=== PATIENT | male | born 1970 | race Caucasian/White ===

== ENCOUNTER 2024-06-18 17:59 | Inpatient (IN) | payer OTHER, SELFPAY ==
[2024-06-18 12:40] VITALS: BP 137/59
--- NOTE | 2024-06-18 12:47 | ED.PDOC.TRB ---
ED Provider Triage
-
Patient seen by provider in Triage?: Seen in Triage
Attestation: A medical screening examination has been initiated by a qualified medical provider. Based on the assessment performed at this time, it has been determined that an emergent medical condition may exist and the patient has been informed
that further medical evaluation and possible additional diagnostic testing may be needed.
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 He was seen at his
oncologist office today where the toe was evaluated, he had labs showing mild leukocytosis and was given a dose of IV antibiotics. Oncologist is in [place] greater than 2 hours from this hospital. He was apparently given a dose of IV
antibiotics there. Denies fevers or chills
GENERAL: Alert , in no apparent distress
EYE: No visual abnormalities.
NECK: Trachea midline
ENT: No visible abnormalities.
LUNGS: No acute respiratory distress
NEUROLOGICAL: Alert and oriented
SKIN: Skin intact. No visible changes. Diffuse redness and swelling of the left third toe with lymphangitis extending to the mid left lower leg
MUSCULOSKELETAL: Moving extremities normally
PSYCH: Normal and appropriate interaction.
Assessment: Will obtain labs including inflammatory markers and a toe x-ray to evaluate for osteomyelitis. High suspicion that he will require admission for IV antibiotics will recommend IV placement in triage, clinically stable
This is a medical evaluation conducted in person to initiate diagnostic evaluation and provide initial therapeutics. Please see further documentation by the treating clinician.
[2024-06-18 13:02] LABS: % Basophils 0.6 % (0-2); % Eosinophils 2.9 % (0-6); % Immature Granulocytes 0.4 % (0-0.5); % Lymphocytes 14.1 % (20.5-51.1); % Monocytes 9.5 % (1.7-9.3); % Neutrophils 72.5 % (42.2-75.2); Absolute Basophils 0.1 10^3/uL (0-0.2); Absolute Eosinophils 0.4 10^3/uL (0-0.7); Absolute Immature Granulocytes 0.1 10^3/uL (0-0.05); Absolute Lymphocytes 1.7 10^3/uL (1.2-3.4); Absolute Monocytes 1.2 10^3/uL (0.1-0.6); Hematocrit 34.2 % (39.0-52.0); Hemoglobin 11.9 g/dL (13.0-18.0); Mean Corp Hgb Conc. 34.8 g/dL (33.0-37.0); Mean Corpuscular Hgb 29.3 pg (27.0-31.0); Mean Corpuscular Volume 84.2 fL (80.0-94.0); Mean Platelet Volume 8.7 fL (7.4-10.4); Nucleated Red Blood Cells % 0 % (-); Platelet Count 267 10^3/uL (130-400); Red Blood Cell Count 4.06 10^6/uL (4.70-6.10); Red Cell Dist. Width 14.2 % (11.5-14.5); White Blood Cell Count 12.4 10^3/uL (4.8-10.8)
[2024-06-18 13:09] LABS: Erythrocyte Sed Rate 43 mm/hour (0-20)
[2024-06-18 13:24] LABS: ALT (SGPT) 29 U/L (0-50); AST (SGOT) 32 U/L (17-59); Albumin 4.7 g/dl (3.5-5.0); Alkaline Phosphatase 77 U/L (38-126); Blood Urea Nitrogen 38 mg/dl (9-20); Calcium 10.3 mg/dl (8.4-10.2); Carbon Dioxide 21 mmol/L (22-30); Chloride 106 mmol/L (98-107); Glucose 124 mg/dl (70-99); Potassium 4.9 mmol/L (3.5-5.1); Sodium 143 mmol/L (135-145); Total Bilirubin 0.5 mg/dl (0.2-1.3); Total Protein 7.3 g/dl (6.3-8.2); eGFR 47.02
--- NOTE | 2024-06-18 15:12 | ED.GENMED ---
History of Present Illness
General
Chief Complaint: Skin Problem
Source: patient
Exam Limitations: none
Time Seen by Provider: 06/18/24 15:12
Nursing documentation reviewed up to this point in time: agreed with
History of Present Illness
History of Present Illness:
This is a 54 y/o male with
Past History
Past History
ED Past Medical History: HTN and NIDDM
Social History
Tobacco: Non-smoker
Personal:
Living: with family
Employment: Employed
Course
Orders/Labs/Results
Orders:
Orders
06/18/24 12:45
CR Toe(s) Min 2 Vw Left Urgent
Comment:
Reason For Exam: poss osteo
Indicate Which Toe:: Third
06/18/24 12:49
CRP [C-Reactive Protein] Urgent
Complete Blood Count/With Diff Urgent
Comprehensive Metabolic Panel Urgent
ESR [Erythrocyte Sed Rate] Urgent
Abnormal Lab Results
06/18/24
12:49
WBC 12.4 H 10^3/uL
(4.8-10.8)
RBC 4.06 L 10^6/uL
(4.70-6.10)
Hgb 11.9 L g/dL
(13.0-18.0)
Hct 34.2 L %
(39.0-52.0)
Abs Immat Gran (auto) 0.1 H 10^3/uL
(0-0.05)
Absolute Neuts (auto) 9.0 H 10^3/uL
(1.4-6.5)
Absolute Monos (auto) 1.2 H 10^3/uL
(0.1-0.6)
Lymphocytes % 14.1 L %
(20.5-51.1)
Monocytes % 9.5 H %
(1.7-9.3)
ESR 43 H mm/hour
(0-20)
Carbon Dioxide 21 L mmol/L
(22-30)
BUN 38 H mg/dl
(9-20)
Creatinine 1.7 H mg/dL
(0.7-1.3)
Glucose 124 H mg/dl
(70-99)
Calcium 10.3 H mg/dl
(8.4-10.2)
C-Reactive Protein 34.00 H mg/L
(0.0-10.00)
06/18/24 12:49
06/18/24 12:49
Vital Signs
Initial and Last Documented VS:
Initial Vital Signs
Temp Pulse Resp BP Pulse Ox
98.6 F 87 18 137/59 99
06/18/24 12:40 06/18/24 12:40 06/18/24 12:40 06/18/24 12:40 06/18/24 12:40
Last Documented Vital Signs
Temp Pulse Resp BP Pulse Ox
98.6 F 87 18 137/59 99
06/18/24 12:40 06/18/24 12:40 06/18/24 12:40 06/18/24 12:40 06/18/24 12:40
ED Attending Note
-
Portions of this chart may have been created with voice recognition software.� Occasional wrong word or��sound alike� substitutions may have occurred due to the inherent limitations of voice recognition software.
Discharge Plan
Departure
Prescriptions:
No Action
atorvastatin 40 MG tablet
40 mg PO DAILY
metformin 500 MG tablet
500 mg PO BID
aspirin 81 MG tablet,delayed release (DR/EC)
81 mg PO DAILY
hydrochlorothiazide 12.5 MG capsule
12.5 mg PO DAILY
quinapril [Accupril] 20 MG tablet
20 mg PO DAILY
diltiazem HCl [Cardizem LA] 240 MG tablet extended release 24 hr
240 mg PO DAILY
metaxalone [Skelaxin] 800 MG tablet
800 mg PO TIDPRN Qty: 30 0RF
Referrals:
Boy Kowalski DO [Family Provider] -
Interventions
Interventions:
*Risk Screen - Suicide Last Done: 06/18/24 12:44
*General Assessment Last Done: 06/18/24 12:44
*Neglect/Abuse Screening Last Done: 06/18/24 12:44
ED- Fall Risk Assessment Last Done: 06/18/24 14:19
*ED COVID-19 Vaccine History Last Done: 06/18/24 14:19
ED-Skin Assessment Last Done: 06/18/24 14:18
Discharge Date and Time
Print Language: SYRIAC
--- NOTE | 2024-06-18 15:24 | ED.GENMED ---
History of Present Illness
General
Chief Complaint: Skin Problem
Source: patient and physician
Time Seen by Provider: 06/18/24 15:12
History of Present Illness
History of Present Illness:
54-year-old male with past medical history of CML, glx-mkmnivu-vuaornilx diabetes and hypertension presenting to the emergency department for evaluation after he noticed left middle toe erythema and pain that he noticed this morning while showering
and getting ready for his oncology appointment. While at the oncology office patient noted to the oncologist his symptoms who evaluated the patient and decided to take him to a clinic that was next to the oncology office who evaluated the patient,
gave him a dose of Zosyn and recommended he come to the ER ultimately to be admitted for IV antibiotics given his comorbidities. Patient states he cannot think of anything that caused the redness other than last week he had been on the [facility]
on vacation and also notes that he has a new bathroom at home and thinks he could have excellently stepped on a piece of marble but he notes that he did not notice any cuts or abrasions on the toe. Patient denies any fevers, chills, rigors and
states he otherwise feels like he is in his usual state of health.
Past History
Past History
ED Past Medical History: Cancer, HTN and NIDDM
ED Past Surgical History: None
Social History
Tobacco: Non-smoker
Alcohol: None
Drug: None
Personal:
Living: with family
Employment: Employed
Review of Systems
Review of Systems
All Other Systems: ROS reviewed and negative except as documented in HPI and ROS
Phy Exam
Physical Exam
Physical Exam:
GENERAL: Alert , in no apparent distress
EYE: conjunctiva clear
NECK: Supple, no significant adenopathy.
ENT: o/p clr, mmm.
CARDIAC: Regular rate and rhythm
LUNGS: Clear breath sounds bilaterally, no acute respiratory distress, no wheezes/rales/rhonchi
NEUROLOGICAL: Alert and oriented
SKIN: Warm and dry, significant erythema and edema of the left middle toe with streaking up towards the proximal tib-fib region. There is tenderness to the great toe.
MUSCULOSKELETAL: well perfused.
PSYCH: Normal and appropriate interaction.
Scores
Heart Failure Risk
Heart Failure Risk Score: Not Applicable
Heart Score for Chest Pain Patients
STEMI patient?: Not applicable
Withdrawal Assessment of Alcohol
Withdrawal Assessment Completed?: Not applicable
Course
Orders/Labs/Results
Orders:
Orders
06/18/24 12:45
CR Toe(s) Min 2 Vw Left Urgent
Comment:
Reason For Exam: poss osteo
Indicate Which Toe:: Third
06/18/24 12:49
CRP [C-Reactive Protein] Urgent
Complete Blood Count/With Diff Urgent
Comprehensive Metabolic Panel Urgent
ESR [Erythrocyte Sed Rate] Urgent
06/18/24 15:35
Vancomycin [Vancocin] 2,000 mg 0.9% Sodium Chloride 500 ml [Nss] 500 ml IV NOW
Abnormal Lab Results
06/18/24
12:49
WBC 12.4 H 10^3/uL
(4.8-10.8)
RBC 4.06 L 10^6/uL
(4.70-6.10)
Hgb 11.9 L g/dL
(13.0-18.0)
Hct 34.2 L %
(39.0-52.0)
Abs Immat Gran (auto) 0.1 H 10^3/uL
(0-0.05)
Absolute Neuts (auto) 9.0 H 10^3/uL
(1.4-6.5)
Absolute Monos (auto) 1.2 H 10^3/uL
(0.1-0.6)
Lymphocytes % 14.1 L %
(20.5-51.1)
Monocytes % 9.5 H %
(1.7-9.3)
ESR 43 H mm/hour
(0-20)
Carbon Dioxide 21 L mmol/L
(22-30)
BUN 38 H mg/dl
(9-20)
Creatinine 1.7 H mg/dL
(0.7-1.3)
Glucose 124 H mg/dl
(70-99)
Calcium 10.3 H mg/dl
(8.4-10.2)
C-Reactive Protein 34.00 H mg/L
(0.0-10.00)
06/18/24 12:49
06/18/24 12:49
Vital Signs
Initial and Last Documented VS:
Initial Vital Signs
Temp Pulse Resp BP Pulse Ox
98.6 F 87 18 137/59 99
06/18/24 12:40 06/18/24 12:40 06/18/24 12:40 06/18/24 12:40 06/18/24 12:40
Last Documented Vital Signs
Temp Pulse Resp BP Pulse Ox
98.6 F 87 18 137/59 99
06/18/24 12:40 06/18/24 12:40 06/18/24 12:40 06/18/24 12:40 06/18/24 12:40
MDM/Problems Addressed
Differential Diagnosis Includes:
Cellulitis, abscess, necrotizing fasciitis, osteomyelitis
MDM/Problems Addressed:
54-year-old male presenting to the emergency department for evaluation of left toe erythema edema and pain. Patient with CML and vqc-vlpkexd-glhkgphjt diabetes. Patient is afebrile. He does have a leukocytosis and mild CKD. Inflammatory markers
are also mildly elevated. Given the amount of streaking up the left leg I do have concern for a more aggressive infection. Patient already received a dose of Zosyn. Will add on vancomycin. Plan to admit patient for continued IV antibiotics.
Will notify hospitalist team
Chronic conditions affecting care: DM and Cancer
*Radiology
Radiology exam reviewed: radiology read reviewed
*Pulse Oximetry
Patient hypoxic: no
*Critical Care Note
Total Time (30-74mins, 75-104mins- exclusive of procedures): Not Applicable
Patient Management
Discussion with other providers: Hospitalist
Escalation/DeEscalation of care consider admission/obs:
Hospitalist team aware and accepts for continued evaluation and treatment
ED Attending Note
-
Portions of this chart may have been created with voice recognition software.� Occasional wrong word or��sound alike� substitutions may have occurred due to the inherent limitations of voice recognition software.
Discharge Plan
Departure
Patient Disposition: Admit
Date of Disposition: 06/18/24
Time of Disposition: 15:27
Presentation/result/management discussed w/ accepting MD/DO: Hospitalist
Discharge Problem:
Cellulitis of left foot
Prescriptions:
No Action
atorvastatin 40 MG tablet
40 mg PO DAILY
aspirin 81 MG tablet,delayed release (DR/EC)
81 mg PO DAILY
diltiazem HCl [Cardizem LA] 240 MG tablet extended release 24 hr
240 mg PO DAILY
valsartan 160 mg tablet
160 mg PO DAILY
dasatinib [Sprycel] 50 mg tablet
50 mg PO DAILY
Ozempic 1 mg/dose (4 mg/3 mL) pen injector
1 mg SC TU
Referrals:
Boy Kowalski DO [Family Provider] -
Interventions
Interventions:
*Risk Screen - Suicide Last Done: 06/18/24 12:44
*General Assessment Last Done: 06/18/24 12:44
*Neglect/Abuse Screening Last Done: 06/18/24 12:44
ED- Fall Risk Assessment Last Done: 06/18/24 14:19
*ED COVID-19 Vaccine History Last Done: 06/18/24 14:19
ED-Skin Assessment Last Done: 06/18/24 14:18
Discharge Date and Time
Print Language: AMHARIC
[2024-06-18 15:34] VITALS: BMI 39.4
[2024-06-18] MEDS: VANCOCIN 540 MG IV (15:53)
[2024-06-18 15:58] VITALS: BP 132/59
--- NOTE | 2024-06-18 17:24 | HPS.HSE ---
Addendum entered and electronically signed by Octavio Camilo MD 06/18/24 17:43:
I saw and examined the patient.
The MASTER CERTIFIED RV TECHNICIAN or PA's note was reviewed and I agree with the note.
Comment:
54Min immunocompromised host HX DMT2 Hx CML in remission on Sprycel, CKD3a with baseline Cr1.6 a/w suspected Lt D3 toed trauma from blunt injury complicated with Left Foot and D3 Lt 3rd toe Cellulitis with Lymphangitis
-Continue Vancomycin and Zosyn
DVT Px : Heparin SC
Code Status: Full Code
IP MS
Original Note:
Family Physician
-
Family Physician: Boy Kowalski
Chief Complaint
-
Redness and Swelling of Left Foot
History of Present Illness
Pt is a 54 yo male with a hx of NIDDM, and CML in remission presents for 1 day of toe swelling and redness. He thinks that his toe looked fine yesterday but this morning when showering he noticed the third toe on his left foot was red and swollen
with streaks of redness extending up his lower leg. He says it feels swollen but denies pain, though he some peripheral neuropathy. Earlier today he saw his oncologist at [facility] in [place] for a routine appointment, and his oncologist gave him a
dose of Zosyn before recommending he come to the ER. Patient states that he recently stubbed his toe against the lip of his shower but that he hasn't noticed any recent abrasions, cuts or signs of injury to his toe. He denies fever, sweats or chills.
Medical History
Past Medical History
Past Medical History: Reports Other
Additional Past Medical History:
CML (Chronic Myeloid Leukemia)
Coronary Atherosclerosis
Essential Hypertension
Hyperlipidemia
Diabetes Mellitus, Type II
CKD Stage II
Class III Obesity
Past Surgical History: Reports None
Social History
Tobacco: Non-smoker
Alcohol: Occasional
Family History
Family History: Not pertinent
Allergies / Home Medications
Allergies reflects when Allergies were last updated in [employer].
Home Medications with original date entered in [employer]
Allergy/Medication List:
Allergies
Allergy/AdvReac Type Severity Reaction Status Date / Time
No Known Allergies Allergy Verified 06/18/24 12:48
Home Medications
aspirin 81 mg tablet,delayed release 81 mg PO DAILY 05/01/14
atorvastatin 40 mg tablet 40 mg PO DAILY 05/01/14
diltiazem HCl 240 mg tablet,extended release 24 hr (Cardizem LA) 240 mg PO DAILY 05/01/14
dasatinib 50 mg tablet (Sprycel) 50 mg PO DAILY 06/18/24
semaglutide 1 mg/dose (4 mg/3 mL) subcutaneous pen injector (Ozempic) 1 mg SC TU 06/18/24
valsartan 160 mg tablet 160 mg PO DAILY 06/18/24
Review of Systems
-
A 12 point ROS was completed and negative except as noted: Yes
Constitutional: Denies Fever or Chills
Respiratory: Denies Cough or Trouble Breathing
Cardiac: Denies Chest Pain or Palpitations
Abdomen/GI: Denies Abdominal Pain, Nausea, Vomiting or Diarrhea
Physical Exam
Vital Signs
Vital Signs
Temp Pulse Resp BP Pulse Ox
98.6 F 87 18 132/59 99
06/18/24 12:40 06/18/24 12:40 06/18/24 12:40 06/18/24 15:58 06/18/24 12:40
Physical Exam
General: Comfortable and Conversant
HEENT: Anicteric and Moist mucous membranes
Respiratory: Clear and Non Labored Respirations
Cardiac: S1/S2 and Regular Rhythm
GI: Soft, Non Tender and Other (Protuberant)
Rectal: Deferred by Provider
Musculoskeletal: No Clubbing, No Cyanosis and Other (Edema left foot)
Skin: Warm, Dry and Other (Significant erythema left 3rd toe with lymphangitic streaking up the forefoot)
Neuro: Awake, Alert, Oriented and Nonfocal/grossly intact
Psych: Calm
Laboratory Results
-
06/18/24 12:49
06/18/24 12:49
Laboratory Results
Total Bilirubin 0.5 mg/dl (0.2-1.3) 06/18/24 12:49
AST 32 U/L (17-59) 06/18/24 12:49
ALT 29 U/L (0-50) 06/18/24 12:49
Alkaline Phosphatase 77 U/L (38-126) 06/18/24 12:49
Left Toe X-Ray:
No acute fracture or dislocation. Visualized joints are intact. Moderate soft tissue swelling about the third digit. No significant osseous erosions identified. No overt radiographic evidence for osteomyelitis.
Data Reviewed
-
Diagnostic Radiology: Report Reviewed by me
Lab Data: Labs Reviewed by me
Impression/Plan
-
Left Foot Cellulitis with Lymphangitis in immunocompromised patient
-Continue Vancomycin and Zosyn
Coronary Atherosclerosis
-Continue aspirin
Essential Hypertension
-Continue valsartan and diltiazem
-Monitor blood pressure
Hyperlipidemia
-Continue atorvastatin
Diabetes Mellitus, Type II
-Check HgbA1c
-Patient maintained on Ozempic as outpatient
-Monitor sugars and continue coverage insulin
Chronic Kidney Disease
-Reviewed outpatient blood work from May 2024 with Creatinine 1.57
-Continue to monitor creatinine
CML (Chronic Myeloid Leukemia) - In Remission
-Hold Sprycel in setting of active infection
Class III Obesity
-Affects all aspects of care
-Continue Ozempic
DVT proph: Heparin SC
Code Status: Full Code
--- NOTE | 2024-06-18 19:42 | PHA.VAN.IN ---
Assessment
- Assessment
Renal Function: Appears similar to baseline (05/25 BASELINE SCR: 1.6 AT OUTPT LAB PER H&P)
Concomitant Antimicrobials: ZOSYN
- Previous Dosing Experience
Previous Regimen: NONE
AUC Dosing Plan
- Dosing Variables
Dosing Weight (kg): 124.5
Dosing CrCl (ml/min): 65
Vd coefficient (L/kg): 0.6
- Empiric Dosing
Initial / Loading Dose: 2GM
Maintenance Regimen: 1GM IV Q12H
Estimated AUC (mcg*h/mL): 472
Estimated Peak (mcg*h/mL): 26.6
Estimated Trough (mcg/ml): 14
Estimated Half Life (H): 11.9
Pharmacokinetics Vancomycin I
- -
Patient Age: 54
Patient Sex: Male
Vancomycin Day #: 1
Indication: Skin And Soft Tissue ([L] FOOT CELLULITIS)
Requesting Provider: EAMON
Height / Weight:
Height 5 ft 10 in
Actual Weight 124.5 kg
Pertinent Past Medical History: NIDDM; CML
- Vital Signs / Lab Results
Temp Pulse Resp BP Pulse Ox
98.6 F 87 18 132/59 99
06/18/24 12:40 06/18/24 12:40 06/18/24 12:40 06/18/24 15:58 06/18/24 12:40
Lab Results - Hematology
06/18/24
12:49
WBC 12.4 H
Lab Results - Chemistry
06/18/24
12:49
BUN 38 H
Creatinine 1.7 H
Albumin 4.7
--- NOTE | 2024-06-18 20:00 | PTCARENOTE ---
no delay receieved. aaox3. vss. erythema and swelling noted lft 3rd toe. +pp. call daniels in reach. will monitor.
[2024-06-18] MEDS: ZOSYN 50 IV (20:03)
[2024-06-18] MEDS: HEPARIN 5000 UNITS SC (23:24)
[2024-06-18] MEDS: TYLENOL 650 MG PO (23:27)
[2024-06-18 23:31] VITALS: BP 135/46
[2024-06-19] MEDS: ZOSYN 50 IV ×4 (00:57→20:20)
--- NOTE | 2024-06-19 06:01 | DOWNTIME ---
There was a [employer] Downtime on 06/19/2024 from 0100 to 06/19/2024 at 0300. Downtime documentation of patient's care, including medication administrations, has been reconciled in the electronic record per guidelines. Refer to the
patient's paper chart under the miscellaneous tab to see printed paper medication records and downtime forms.
[2024-06-19] MEDS: VANCOCIN 200 IV (06:46)
[2024-06-19 07:04] LABS: Glucose - Point of Care 134 mg/dl (70-99)
[2024-06-19 07:31] LABS: Hematocrit 31.3 % (39.0-52.0); Mean Corp Hgb Conc. 35.1 g/dL (33.0-37.0); Mean Corpuscular Hgb 29.2 pg (27.0-31.0); Mean Platelet Volume 8.8 fL (7.4-10.4); Platelet Count 262 10^3/uL (130-400); Red Blood Cell Count 3.77 10^6/uL (4.70-6.10); Red Cell Dist. Width 13.9 % (11.5-14.5); White Blood Cell Count 7.4 10^3/uL (4.8-10.8)
[2024-06-19] MEDS: ASPIR LOW (ENTERIC COATED) 81 MG PO (07:34)
[2024-06-19] MEDS: DIOVAN 160 MG PO (07:34)
[2024-06-19] MEDS: CARDIZEM CD 240 MG PO (07:34)
[2024-06-19] MEDS: LIPITOR 40 MG PO (07:34)
[2024-06-19] MEDS: HEPARIN 5000 UNITS SC ×2 (07:39→15:58)
[2024-06-19 07:47] VITALS: BP 151/69
[2024-06-19 08:09] LABS: Blood Urea Nitrogen 31 mg/dl (9-20); Carbon Dioxide 20 mmol/L (22-30); Chloride 108 mmol/L (98-107); Estimated Creatinine Clearance 65 ml/min; Glucose 132 mg/dl (70-99); Potassium 5.8 mmol/L (3.5-5.1); Sodium 144 mmol/L (135-145); eGFR 47.02
--- NOTE | 2024-06-19 08:18 | PHA.VAN.FU ---
Vancomycin Assessment / Plan
- Assessment
Renal Function: Stable
WBC's are: Trending Down
In the past 24 hrs, patient has been: Afebrile
Concomitant Antimicrobials: piperacillin/tazobactam
- Dosing Plan
Adjust Regimen to: dosing by level
Dosing Comments: anticipate weight / BMI may be overestimating CrCl with SCR 1.7
Patient has received total of 3g, will hold off on further dosing today and assess level
- Monitoring Plan
Random Level: 06/20 600
- Follow Up
Pharmacy will continue to follow.
Vancomycin Follow UP
- -
Patient Age: 54
Patient Sex: Male
Vancomycin Day #: 2
Indication: Skin And Soft Tissue
Requesting Provider: Catracho Owen
Pertinent Antimicrobial Allergies:
NKDA
Height / Weight:
Height 5 ft 10 in
Actual Weight 124.5 kg
Pertinent Past Medical History: BMI ~39, DM, CML, CKD (baseline SCR ~1.6)
- Vital Signs / Lab Results
Temp Pulse Resp BP Pulse Ox
98.7 F 77 17 151/69 96
06/19/24 07:47 06/19/24 07:47 06/19/24 07:47 06/19/24 07:47 06/19/24 07:47
Lab Results - Hematology
06/18/24 06/19/24
12:49 07:07
WBC 12.4 H 7.4
Lab Results - Chemistry
06/18/24 06/19/24
12:49 07:07
BUN 38 H 31 H
Creatinine 1.7 H 1.7 H
Estimated Creat Clear 65
Albumin 4.7
[2024-06-19 08:39] LABS: Glycohemoglobin (HgbA1c) 6.3 % (4.0-5.6)
--- NOTE | 2024-06-19 12:32 | W.PN.HOSP.TC ---
Today's Communication/Plan
-
Continue with IV vancomycin and Zosyn
Trend CBC, temperature, inflammatory markers
Order ECG for now, consider temporization of potassium
Trend daily BMP
Assessment / Plan
Assessment / Plan
#Left foot cellulitis with lymphangitis
-Presented with painful, red and swollen third digit on his left toe; on TKI for CML, immunosuppressed
-Suspect possible streptococcal involvement due to lymphangitis/streaking
-States he recently injured his toe while getting into the shower, had skin break
-Was started on vancomycin and Zosyn empirically on arrival yesterday
-MRSA screen pending, clinically improving on antibiotic
Plan
-Will continue with broad-spectrum antibiotics for now pending MRSA screen
-Trend daily inflammatory markers, CBC, and temperature curve
-Consider podiatry consult if not improving as expected
-Continue to hold TKI while treating infection
#Hyperkalemia
-Potassium this morning came back at 5.8, no mention of hemolysis on sample
-Suspect that this may be related to valsartan, possibly prerenal state with infection
-No obvious signs or symptoms of hyperkalemia at this time
Plan
-Stop valsartan, order ECG now to assess for changes of hyperkalemia
-Order repeat BMP for 1 PM, plan to repeat again tomorrow morning
-Plan to temporize with IV insulin, calcium gluconate if ECG abnormalities are present
-Will temporize potassium empirically if BMP shows K >6.0
#T2DM
-Well-controlled per patient, most recent hemoglobin A1c <7%
-Complicated by microvascular disease including neuropathy, possible CKD
-Home regimen includes Ozempic; no insulin or other oral agents
-Added on sliding scale insulin with Accu-Cheks while hospitalized
#CKD2
-Unclear etiology, possibly related to his diabetic history; no recent labs, unclear baseline
-His BMP here has shown creatinine of 1.7 x 2, with creatinine clearance 65; may represent baseline
-No known systemic complications such as acidemia, bone mineral disease, anemia
-Will trend BMP while here
#CAD
-Home medications include aspirin and high intensity statin
-No known history of interventions such as CABG or PCI
-No signs of coronary ischemia on this hospitalization
#HLD
-ASCVD history with CAD, unclear if obstructive
-Remains on high intensity statin as above
#HTN
-Home medications include diltiazem and valsartan
-No known history of hypertensive systemic disease
-Blood pressure currently well-controlled
#CML -- in remission
#Immunosuppressed on TKI
-Currently on maintenance therapy with Dasatinib as TKI
-Has been clinically stable and in remission, no signs of active disease
-CBC here shows normal blood cell parameters, basophil's WNL
-Holding TKI temporarily due to infection as above
#Class III obesity
-Remains on semaglutide as an outpatient
DVT prophylaxis: Heparin subcutaneous
Diet: Carbohydrate controlled
CODE STATUS: Full code
Anticipated Discharge: 24 - 48 hours
Subjective/Interval History
-
Date of Service: June 19, 2024
Seen and examined at the bedside. No acute events overnight. AFVSS this morning.
He states that his foot feels slightly less swollen, though he says it is visually not much better than yesterday. He mentions that he was getting into the shower at home when he stubbed his toe on a marble floor, had a break in the skin at that
time which she suspects is the source of his infection. He does have diabetic neuropathy which limits his sensation in the feet.
He denies chest pain, shortness of breath, fevers or chills, GI issues, urinary issues, abnormal bleeding or bruising, paresthesias or weakness.
Objective Data
-
Labs:
Laboratory Results
06/19/24
07:07
WBC 7.4
Hgb 11.0 L
Hct 31.3 L
Plt Count 262
Sodium 144
Potassium 5.8 H
Chloride 108 H
Carbon Dioxide 20 L
BUN 31 H
Creatinine 1.7 H
Glucose 132 H
Calcium 10.0
Vital Signs:
Vital Signs
Temp Pulse Resp BP Pulse Ox
98.7 F 77 17 151/69 96
06/19/24 07:47 06/19/24 07:47 06/19/24 07:47 06/19/24 07:47 06/19/24 07:47
I&O
06/18/24 06/19/24 06/20/24
06:59 06:59 06:59
Intake Total 480 / 480
Balance 480 / 480
Review of Systems
-
History Source: Patient
All other systems: Reviewed and negative
Physical Exam
-
General: No Apparent Distress, Comfortable and Obese
HEENT: Normocephalic, Atraumatic and Moist Mucous Membranes
Respiratory: Clear to Auscultation and Non Labored Respirations; Negative Wheezes, Rales or Rhonchi
Cardiac: Regular Rhythm; Negative Murmur, Rub or Gallop
GI: Soft, Nontender, Nondistended and Normal Bowel Sounds
Musculoskeletal: No Clubbing, No Cyanosis and No Edema
Skin: Warm, Dry, Normal Turgor and Other (Third digit of left foot with purple/erythematous appearance, swelling. Minimal erythema surrounding the toe. No gross purulence noted, no fluctuance.); Negative Rash
Neuro: AO x 3, Nonfocal/Grossly Intact and Central Nerve's Intact
Psych: Calm
Data Reviewed
-
Labs: Labs Reviewed by me and Discussed with Patient
[2024-06-19 13:39] LABS: Blood Urea Nitrogen 29 mg/dl (9-20); Calcium 10.1 mg/dl (8.4-10.2); Carbon Dioxide 18 mmol/L (22-30); Chloride 106 mmol/L (98-107); Estimated Creatinine Clearance 74 ml/min; Glucose 120 mg/dl (70-99); Potassium 5.3 mmol/L (3.5-5.1); Sodium 142 mmol/L (135-145); eGFR 54.64
[2024-06-19 15:12] VITALS: BP 132/62
--- NOTE | 2024-06-19 16:27 | CM ---
Patient seen at bedside. Patient states that he lives with his family in a 2 story home with no steps to enter. Patient has no DME. Patient PCP is Dr. Kowalski and he uses the [facility] in [place]. Patient states that he anticipates discharge with no
needs. CM will continue to follow for discharge planning needs.
Plan; home with no needs anticipated at this time
[2024-06-19 16:38] LABS: Glucose - Point of Care 125 mg/dl (70-99)
[2024-06-19 21:22] LABS: Glucose - Point of Care 109 mg/dl (70-99)
[2024-06-19 23:22] VITALS: BP 140/73
[2024-06-20] MEDS: HEPARIN 5000 UNITS SC ×3 (01:21→15:20)
[2024-06-20] MEDS: ZOSYN 50 IV ×4 (01:21→19:46)
--- NOTE | 2024-06-20 03:00 | PTCARENOTE ---
resumed care from previous rn. aaox3. vss. erythema to lft third toe. pt ambulated to br independently.
[2024-06-20 06:19] LABS: % Basophils 0.5 % (0-2); % Eosinophils 6.6 % (0-6); % Immature Granulocytes 0.3 % (0-0.5); % Lymphocytes 11.4 % (20.5-51.1); % Monocytes 11.9 % (1.7-9.3); % Neutrophils 69.3 % (42.2-75.2); Absolute Eosinophils 0.4 10^3/uL (0-0.7); Absolute Lymphocytes 0.7 10^3/uL (1.2-3.4); Absolute Monocytes 0.7 10^3/uL (0.1-0.6); Absolute Neutrophils 4.3 10^3/uL (1.4-6.5); Hematocrit 29.9 % (39.0-52.0); Hemoglobin 10.7 g/dL (13.0-18.0); Mean Corp Hgb Conc. 35.8 g/dL (33.0-37.0); Mean Corpuscular Hgb 29.2 pg (27.0-31.0); Mean Corpuscular Volume 81.5 fL (80.0-94.0); Mean Platelet Volume 8.6 fL (7.4-10.4); Nucleated Red Blood Cells % 0 % (-); Platelet Count 238 10^3/uL (130-400); Red Blood Cell Count 3.67 10^6/uL (4.70-6.10); Red Cell Dist. Width 13.2 % (11.5-14.5); White Blood Cell Count 6.2 10^3/uL (4.8-10.8)
[2024-06-20 06:56] LABS: Blood Urea Nitrogen 24 mg/dl (9-20); Calcium 10.3 mg/dl (8.4-10.2); Carbon Dioxide 19 mmol/L (22-30); Chloride 104 mmol/L (98-107); Estimated Creatinine Clearance 74 ml/min; Glucose 115 mg/dl (70-99); Potassium 5.4 mmol/L (3.5-5.1); Sodium 140 mmol/L (135-145); eGFR 54.64
[2024-06-20] MEDS: LIPITOR 40 MG PO (07:33)
[2024-06-20] MEDS: ASPIR LOW (ENTERIC COATED) 81 MG PO (07:33)
[2024-06-20] MEDS: CARDIZEM CD 240 MG PO (07:33)
[2024-06-20 07:36] VITALS: BP 156/95
[2024-06-20 07:37] LABS: Glucose - Point of Care 127 mg/dl (70-99)
--- NOTE | 2024-06-20 09:02 | PHA.VAN.FU ---
Vancomycin Assessment / Plan
- Assessment
Renal Function: Stable
WBC's are: WNL
In the past 24 hrs, patient has been: Afebrile
Concomitant Antimicrobials: piperacillin/tazobactam
- Assessment - Therapeutic Drug Monitoring
Random Level: 9 - drawn ~23.5H after previous dose of 1000mg
- Dosing Plan
Dosing by Level: Re-dose today (Vanc 1250mg)
- Monitoring Plan
Random Level: 06/21 06
- Follow Up
Pharmacy will continue to follow.
Vancomycin Follow UP
- -
Patient Age: 54
Patient Sex: Male
Vancomycin Day #: 3
Indication: Skin And Soft Tissue
Requesting Provider: Catracho Owen
Pertinent Antimicrobial Allergies:
NKDA
Height / Weight:
Height 5 ft 10 in
Actual Weight 124.5 kg
Pertinent Past Medical History: BMI ~39, DM, CML, CKD (baseline SCR ~1.6)
- Vital Signs / Lab Results
Temp Pulse Resp BP Pulse Ox
98.5 F 85 16 156/95 96
06/20/24 07:36 06/20/24 07:36 06/20/24 07:36 06/20/24 07:36 06/20/24 07:36
Lab Results - Hematology
06/18/24 06/19/24 06/20/24
12:49 07:07 06:00
WBC 12.4 H 7.4 6.2
Lab Results - Chemistry
06/18/24 06/19/24 06/19/24
12:49 07:07 12:56
BUN 38 H 31 H 29 H
Creatinine 1.7 H 1.7 H 1.5 H
Estimated Creat Clear 65 74
Albumin 4.7
06/20/24
06:00
BUN 24 H
Creatinine 1.5 H
Estimated Creat Clear 74
Albumin
Microbiology Results
06/18/24 19:05 MRSA Screen - Final
Nose No Methicillin Resistant Staphylococcus aureus isolated.
Therapeutic Drug Monitoring
Random Vancomycin 9.0 ug/ml 06/20/24 06:00
--- NOTE | 2024-06-20 09:35 | PN.CDI ---
CDI
- -
CDI:
Physician Documentation Request
Admit Date: 06/18/24 17:59
Dear Doctor Guy,
Please review the following and provide your response in the progress notes.
Clinical Indicators:
Pt admitted with LLE cellulitis / Lymphangitis /Immunocompromised
Hx of type 2 DM with diabetic neuropathy /A1C 6.3
Please clarify the relationship between these conditions:
Yes, _LLE Cellulitis _ is related to/associated with/Diabetes ___.
No, _LLE Cellulitis __ is not related to/associated with/Diabetes ___ but it is due to ___. (Please specify)
Unable to determine
Use of terms such as suspected, likely, concern for, or probable (associated with a specific diagnosis that is being evaluated, monitored, or treated as if it exists) are acceptable and can be coded in the inpatient setting, when documented at the
time of discharge.
Thank you,
Reba Escobar RN
CDI Specialist
[place] [facility]
Please use your independent medical judgment in providing your response.
--- NOTE | 2024-06-20 09:42 | PN.CDI ---
CDI
- -
CDI:
Physician Documentation Request
Admit Date: 06/18/24 17:59
Dear Doctor Guy,
Please review the following and provide your response in the progress notes.
Clinical Indicators:
Pt admitted with LLE cellulitis / Lymphangitis /Immunocompromised
Documented per H&P, ' ... CKD3a with baseline Cr1.6...'
Progress note 06/19,' CKD2...His BMP here has shown creatinine of 1.7 x 2, with creatinine clearance 65; may represent baseline....'
06/18/24 06/19/24 06/19/24
12:49 07:07 12:56
Creatinine 1.7 H 1.7 H 1.5 H
eGFR 47.02 47.02 54.64
06/20/24
06:00
Creatinine 1.5 H
eGFR 54.64
Clarify which of the following accurately represents the patient's renal status:
CKD 3a
CKD stage 2
Other ( please specify)
Stages of Chronic Kidney Disease*
Level Description GFR
G1 Normal or High >90
G2 Mildly decreased 60-89
G3a Mildly to moderately decreased 45-59
G3b Moderately to severely decreased 30-44
G4 Severely decreased 15-29
G5 Kidney failure <15
Use of terms such as suspected, likely, concern for, or probable (associated with a specific diagnosis that is being evaluated, monitored, or treated as if it exists) are acceptable and can be coded in the inpatient setting, when documented at the
time of discharge.
Thank you,
Reba Escobar RN
CDI Specialist
[place] [facility]
Please use your independent medical judgment in providing your response.
*Source: Kidney Disease: Improving Global Outcomes (KDIGO) 2012
[2024-06-20] MEDS: VANCOCIN 275 MG IV (09:45)
[2024-06-20 11:39] LABS: Glucose - Point of Care 94 mg/dl (70-99)
--- NOTE | 2024-06-20 12:44 | W.PN.HOSP.TC ---
Addendum entered and electronically signed by Ariel Tovar DO 06/20/24 12:55:
CDI clarification: Nonpurulent cellulitis of left foot, associated with diabetes. Diabetic foot infection
Original Note:
Today's Communication/Plan
-
Continue with IV vancomycin and Zosyn
Follow-up MRSA screen
Podiatry consult
Start bowel regimen
Assessment / Plan
Assessment / Plan
#Left foot cellulitis with lymphangitis
-Presented with painful, red and swollen third digit on his left toe; on TKI for CML, immunosuppressed
-Suspect possible streptococcal involvement due to lymphangitis/streaking
-States he recently injured his toe while getting into the shower, had skin break
-Was started on vancomycin and Zosyn empirically on arrival yesterday
-MRSA screen pending, but not improving as expected antibiotics
Plan
-Will continue with broad-spectrum antibiotics for now pending MRSA screen
-Trend daily inflammatory markers, CBC, and temperature curve
-Continue to hold TKI while treating infection, will reach out to oncologist about the timeframe to hold
-Podiatry consult for potential lancing or other intervention
#Hyperkalemia
-Potassium yesterday was 5.8, on repeat is 5.3 x 2 draws; no ECG changes
-Suspect that this may be related to valsartan, possibly prerenal state with infection
-No obvious signs or symptoms of hyperkalemia at this time
-Continue to monitor daily BMP and hold valsartan
#T2DM
-Well-controlled per patient, most recent hemoglobin A1c <7%
-Complicated by microvascular disease including neuropathy, possible CKD
-Home regimen includes Ozempic; no insulin or other oral agents
-Added on sliding scale insulin with Accu-Cheks while hospitalized
#CKD3a
-Unclear etiology, possibly related to his diabetic history; no recent labs, unclear baseline
-His BMP here has shown creatinine of 1.7 x 2, with creatinine clearance 65; may represent baseline
-No known systemic complications such as acidemia, bone mineral disease, anemia
-Will trend BMP while here
#CAD
-Home medications include aspirin and high intensity statin
-No known history of interventions such as CABG or PCI
-No signs of coronary ischemia on this hospitalization
#HLD
-ASCVD history with CAD, unclear if obstructive
-Remains on high intensity statin as above
#HTN
-Home medications include diltiazem and valsartan
-No known history of hypertensive systemic disease
-Blood pressure currently well-controlled
#CML -- in remission
#Immunosuppressed on TKI
-Currently on maintenance therapy with Dasatinib as TKI
-Has been clinically stable and in remission, no signs of active disease
-CBC here shows normal blood cell parameters, basophil's WNL
-Holding TKI temporarily due to infection as above
#Class III obesity
-Remains on semaglutide as an outpatient
DVT prophylaxis: Heparin subcutaneous
Diet: Carbohydrate controlled
CODE STATUS: Full code
Anticipated Discharge: 24 - 48 hours
Subjective/Interval History
-
Date of Service: June 20, 2024
Seen and examined at the bedside. No acute events overnight. AFVSS this morning.
He was able to walk around the hallways some prior to my evaluation. He does not have any pain in the foot due to his baseline neuropathy. Initially had some improvement to swelling and redness in the left lower extremity, however toe appears
about the same today as yesterday.
He denies fevers or chills, chest pain, shortness of breath, nausea, vomiting, diarrhea, urinary issues, abnormal bleeding or bruising, paresthesias or weakness. Denies pus from the toe. He does state he has not had a bowel movement in a few days,
will start an as needed bowel regimen
Objective Data
-
Labs:
Laboratory Results
06/20/24
06:00
WBC 6.2
Hgb 10.7 L
Hct 29.9 L
Plt Count 238
Sodium 140
Potassium 5.4 H
Chloride 104
Carbon Dioxide 19 L
BUN 24 H
Creatinine 1.5 H
Glucose 115 H
Calcium 10.3 H
Vital Signs:
Vital Signs
Temp Pulse Resp BP Pulse Ox
98.5 F 85 16 156/95 96
06/20/24 07:36 06/20/24 07:36 06/20/24 07:36 06/20/24 07:36 06/20/24 07:36
I&O
06/19/24 06/20/24 06/21/24
06:59 06:59 06:59
Intake Total 480 / 480 960 / 960
Balance 480 / 480 960 / 960
Review of Systems
-
History Source: Patient
All other systems: Reviewed and negative
Physical Exam
-
General: No Apparent Distress, Comfortable and Obese
HEENT: Normocephalic, Atraumatic and Moist Mucous Membranes
Respiratory: Clear to Auscultation and Non Labored Respirations; Negative Wheezes, Rales or Rhonchi
Cardiac: Regular Rhythm and S1/S2; Negative Murmur, Rub or Gallop
GI: Soft, Nontender, Nondistended and Normal Bowel Sounds
Musculoskeletal: No Clubbing, No Cyanosis and No Edema
Skin: Warm, Dry, Rash (Erythematous/purple third digit of left toe with moderate swelling) and Other
Neuro: AO x 3, Nonfocal/Grossly Intact and Central Nerve's Intact
Hematologic / Lymphatic: No Lymphadenopathy
Data Reviewed
-
Labs: Labs Reviewed by me and Discussed with Patient
[2024-06-20] MEDS: SENOKOT 8.6 MG PO (13:46)
[2024-06-20 15:49] VITALS: BP 149/78
[2024-06-20 17:25] LABS: Glucose - Point of Care 116 mg/dl (70-99)
--- NOTE | 2024-06-20 17:58 | CON.ORTHO ---
Consultation - Orthopedics
Allergies / Home Medications
Allergy/AdvReac Type Severity Reaction Status Date / Time
No Known Allergies Allergy Verified 06/18/24 12:48
�Medication �Instructions �Recorded
aspirin 81 mg tablet,delayed 81 mg PO DAILY Blood Clot 05/01/14
release Prevention/Tx
atorvastatin 40 mg tablet 40 mg PO DAILY High Cholesterol 05/01/14
diltiazem HCl 240 mg 240 mg PO DAILY Blood Pressure 05/01/14
tablet,extended release 24 hr
(Cardizem LA)
dasatinib 50 mg tablet (Sprycel) 50 mg PO DAILY Cancer 06/18/24
semaglutide 1 mg/dose (4 mg/3 mL) 1 mg SC TU Diabetes 06/18/24
subcutaneous pen injector (Ozempic)
valsartan 160 mg tablet 160 mg PO DAILY Blood Pressure 06/18/24
Vital Signs / Lab Results
Temp Pulse Resp BP Pulse Ox
98.9 F 78 16 149/78 97
06/20/24 15:49 06/20/24 15:49 06/20/24 15:49 06/20/24 15:49 06/20/24 15:49
06/20/24 06:00
06/20/24 06:00
--- NOTE | 2024-06-20 18:03 | CON.SURG ---
Surgical Consultation
-
Pt is a 54 yo male with a hx of NIDDM, and CML in remission presents for 2 days of left 3rd toe swelling and redness. He presents to [facility] when he noticed redness extending from the toe the day prior. Patient states that he recently
stubbed his toe against the lip of his shower but that he hasn't noticed any recent abrasions, cuts or signs of injury to his toe. He was admitted to the hospital, radiographs were taken with no evidence of osteomyelitis and he was started on
vancomycin and zosyn. Since then, his redness has not improved. Upon my evaluation, patient denies any n/v/f/cp/sob. He has no history of previous foot infections or amputations.
Medical History
Past Medical History
Past Medical History: Reports Other
Additional Past Medical History:
CML (Chronic Myeloid Leukemia)
Coronary Atherosclerosis
Essential Hypertension
Hyperlipidemia
Diabetes Mellitus, Type II
CKD Stage II
Class III Obesity
Past Surgical History: Reports None
Social History
Tobacco: Non-smoker
Alcohol: Occasional
Family History
Family History: Not pertinent
Allergies / Home Medications
Allergies reflects when Allergies were last updated in [facility].
Home Medications with original date entered in [facility]
Allergy/Medication List:
Allergies
Allergy/AdvReac Type Severity Reaction Status Date / Time
No Known Allergies Allergy Verified 06/18/24 12:48
Home Medications
aspirin 81 mg tablet,delayed release 81 mg PO DAILY 05/01/14
atorvastatin 40 mg tablet 40 mg PO DAILY 05/01/14
diltiazem HCl 240 mg tablet,extended release 24 hr (Cardizem LA) 240 mg PO DAILY 05/01/14
dasatinib 50 mg tablet (Sprycel) 50 mg PO DAILY 06/18/24
semaglutide 1 mg/dose (4 mg/3 mL) subcutaneous pen injector (Ozempic) 1 mg SC TU 06/18/24
valsartan 160 mg tablet 160 mg PO DAILY 06/18/24
Review of Systems
-
A 12 point ROS was completed and negative except as noted: Yes
Constitutional: Denies Fever or Chills
Respiratory: Denies Cough or Trouble Breathing
Cardiac: Denies Chest Pain or Palpitations
Abdomen/GI: Denies Abdominal Pain, Nausea, Vomiting or Diarrhea
Physical Exam
Vital Signs
Vital Signs
Temp Pulse Resp BP Pulse Ox
98.6 F 87 18 132/59 99
06/18/24 12:40 06/18/24 12:40 06/18/24 12:40 06/18/24 15:58 06/18/24 12:40
Physical Exam
General: Comfortable and Conversant
HEENT: Anicteric and Moist mucous membranes
Respiratory: Clear and Non Labored Respirations
Cardiac: S1/S2 and Regular Rhythm
GI: Soft, Non Tender and Other (Protuberant)
Rectal: Deferred by Provider
Musculoskeletal: No Clubbing, No Cyanosis and Other (Edema left foot)
Skin: Warm, Dry and Other (Significant erythema left 3rd toe with lymphangitic streaking up the forefoot)
Neuro: Awake, Alert, Oriented and Nonfocal/grossly intact
Psych: Calm
Left lower extremity physical exam:
-DP/PT pulses are 2/4. Capillary refill < 3 seconds
-Erythema noted from the 3rd toe with streaking extending proximally to the forefoot
-Fluctuant bulla noted to the distal aspect of the 3rd toe
-No crepitus or deep probing wounds noted
Laboratory Results
-
06/18/24 12:49
06/18/24 12:49
Laboratory Results
Total Bilirubin 0.5 mg/dl (0.2-1.3) 06/18/24 12:49
AST 32 U/L (17-59) 06/18/24 12:49
ALT 29 U/L (0-50) 06/18/24 12:49
Alkaline Phosphatase 77 U/L (38-126) 06/18/24 12:49
Left Toe X-Ray:
No acute fracture or dislocation. Visualized joints are intact. Moderate soft tissue swelling about the third digit. No significant osseous erosions identified. No overt radiographic evidence for osteomyelitis.
Data Reviewed
-
Diagnostic Radiology: Report Reviewed by me
Lab Data: Labs Reviewed by me
Impression/Plan
Patient is a 54 year old diabetic (new HbA1c of 6.3) with a left 3rd toe infection. He has not improved on IV antibiotics and it appears he has a superficial abscess of the distal aspect of the toe. Lanced distal abscess and expressed ~5ccs of
seropurulent material
-Patient seen and evaluated at bedside
-Lanced toe abscess and expressed purulent material
-Recommend daily application of betadine to left 3rd toe
-Recommend MRI of L foot to evaluate for deep infection and/or osteomyelitis
-Continue IV antibiotics at this time and monitor area for improvement of infection
-Recommend forefoot offloading to left 3rd toe (heel weightbearing in a surgical shoe)
[2024-06-20 21:44] LABS: Glucose - Point of Care 116 mg/dl (70-99)
[2024-06-20 23:05] VITALS: BP 118/60
[2024-06-21] MEDS: HEPARIN 5000 UNITS SC ×3 (01:14→15:54)
[2024-06-21] MEDS: ZOSYN 50 IV ×4 (01:58→20:43)
[2024-06-21 02:35] LABS: Glucose - Point of Care 112 mg/dl (70-99)
[2024-06-21 05:54] LABS: % Basophils 0.6 % (0-2); % Eosinophils 5.8 % (0-6); % Immature Granulocytes 0.2 % (0-0.5); % Lymphocytes 12.5 % (20.5-51.1); % Monocytes 12.3 % (1.7-9.3); % Neutrophils 68.6 % (42.2-75.2); Absolute Eosinophils 0.4 10^3/uL (0-0.7); Absolute Lymphocytes 0.8 10^3/uL (1.2-3.4); Absolute Monocytes 0.8 10^3/uL (0.1-0.6); Absolute Neutrophils 4.2 10^3/uL (1.4-6.5); Hematocrit 33.9 % (39.0-52.0); Hemoglobin 12.2 g/dL (13.0-18.0); Mean Corpuscular Volume 83.3 fL (80.0-94.0); Mean Platelet Volume 8.7 fL (7.4-10.4); Nucleated Red Blood Cells % 0 % (-); Platelet Count 264 10^3/uL (130-400); Red Blood Cell Count 4.07 10^6/uL (4.70-6.10); White Blood Cell Count 6.2 10^3/uL (4.8-10.8)
[2024-06-21 05:56] LABS: Vancomycin Random 9.9 ug/ml
[2024-06-21 06:03] LABS: Calcium 10.5 mg/dl (8.4-10.2)
[2024-06-21 06:04] LABS: Blood Urea Nitrogen 24 mg/dl (9-20); Calcium 10.7 mg/dl (8.4-10.2); Carbon Dioxide 20 mmol/L (22-30); Chloride 101 mmol/L (98-107); Estimated Creatinine Clearance 69 ml/min; Glucose 118 mg/dl (70-99); Potassium 5.1 mmol/L (3.5-5.1); Sodium 139 mmol/L (135-145); eGFR 50.57
[2024-06-21 06:23] LABS: Vitamin D, 25-OH*** < 12.8 ng/mL (30-80)
--- NOTE | 2024-06-21 07:44 | CM ---
diabetic left foot cellulitis on iv vanco,iv zosyn,seen by podiatry-rec mri left foot to ro om.Plan:home with no needs.
[2024-06-21 07:45] VITALS: BP 150/78
[2024-06-21 07:56] LABS: Glucose - Point of Care 137 mg/dl (70-99)
--- NOTE | 2024-06-21 08:06 | PHA.VAN.FU ---
Vancomycin Assessment / Plan
- Assessment
Renal Function: Stable
WBC's are: WNL
In the past 24 hrs, patient has been: Afebrile
Concomitant Antimicrobials: piperacillin/tazobactam
- Assessment - Therapeutic Drug Monitoring
Random Level: 9.9 - drawn ~19.5H after previous dose of 1250mg
- Dosing Plan
Dosing by Level: Re-dose today (Vanc 1500mg)
Patient with some accumulation - will slightly increase dosing today to 1500mg to booster levels
Expect patient slower to reach steady state with weight > 100kg and that levels will slowly accumulate
Based on levels, anticipate will require Q24H interval
- Monitoring Plan
Random Level: 06/22 0600
- Follow Up
Pharmacy will continue to follow.
Vancomycin Follow UP
- -
Patient Age: 54
Patient Sex: Male
Vancomycin Day #: 4
Indication: Skin And Soft Tissue
Requesting Provider: Catracho Owen
Pertinent Antimicrobial Allergies:
NKDA
Height / Weight:
Height 5 ft 10 in
Actual Weight 124.5 kg
Pertinent Past Medical History: BMI ~39, DM, CML, CKD (baseline SCR ~1.6)
- Vital Signs / Lab Results
Temp Pulse Resp BP Pulse Ox
98.2 F 69 16 150/78 98
06/21/24 07:45 06/21/24 07:45 06/21/24 07:45 06/21/24 07:45 06/21/24 07:45
Lab Results - Hematology
06/18/24 06/19/24 06/20/24
12:49 07:07 06:00
WBC 12.4 H 7.4 6.2
06/21/24
05:23
WBC 6.2
Lab Results - Chemistry
06/18/24 06/19/24 06/19/24
12:49 07:07 12:56
BUN 38 H 31 H 29 H
Creatinine 1.7 H 1.7 H 1.5 H
Estimated Creat Clear 65 74
Albumin 4.7
06/20/24 06/21/24
06:00 05:23
BUN 24 H 24 H
Creatinine 1.5 H 1.6 H
Estimated Creat Clear 74 69
Albumin
Microbiology Results
06/18/24 19:05 MRSA Screen - Final
Nose No Methicillin Resistant Staphylococcus aureus isolated.
Therapeutic Drug Monitoring
Random Vancomycin 9.9 ug/ml 06/21/24 05:23
[2024-06-21 08:08] LABS: Erythrocyte Sed Rate 63 mm/hour (0-20)
--- NOTE | 2024-06-21 08:57 | W.PN.UPDATE ---
Update Note
Progress Note Update
Patient sitting comfortably in the chair this morning. He reports that he has no pain in the foot. Dressing taken down, there is mild serous drainage. Patient reports improvement in erythema of the foot. MRI completed last night. Continue
antibiotics. Will discuss further treatment plans with Dr. Worthy.
[2024-06-21] MEDS: ASPIR LOW (ENTERIC COATED) 81 MG PO (09:28)
[2024-06-21] MEDS: VANCOCIN 300 ML IV (09:29)
[2024-06-21] MEDS: LIPITOR 40 MG PO (09:29)
[2024-06-21] MEDS: CARDIZEM CD 240 MG PO (09:29)
[2024-06-21] MEDS: VANCOCIN 300 MG IV (09:29)
[2024-06-21 12:02] LABS: Glucose - Point of Care 103 mg/dl (70-99)
--- NOTE | 2024-06-21 12:28 | W.PN.HOSP.TC ---
Today's Communication/Plan
-
Continue with broad-spectrum antibiotics
Follow-up podiatry recs concerning MRI findings
DC valsartan, start hydrochlorothiazide
Assessment / Plan
Assessment / Plan
#Purulent left foot cellulitis and diabetic patient
#Possible early osteomyelitis of the third digit on the left foot
-Presented with painful, red and swollen third digit on his left toe; on TKI for CML, immunosuppressed
-States he recently injured his toe while getting into the shower, had skin break
-Was started on vancomycin and Zosyn empirically on arrival to the hospital
-Initial x-rays x 2 to the left foot did not show any signs of osteomyelitis
-MRI showed possible early acute osteomyelitis of the third digit of left foot
-Does seem to have clinical improvement following incision and drainage
Plan
-Will continue with broad-spectrum antibiotics for now pending MRSA screen
-Trend daily inflammatory markers, CBC, and temperature curve
-Continue to hold TKI for now, consider resuming tomorrow
-May require amputation of the third digit for osteomyelitis
#Mild hypercalcemia
-Calcium here has been in the range of 10.3-10.5 consistently, no signs or symptoms
-Differential diagnoses include primary hyperparathyroidism versus malignancy associated with CML
-Vitamin D levels were low, started on vitamin D supplementation
-Intact PTH and 1, 25 hydroxy vitamin D levels
-Will trend daily BMP and follow-up lab
#Hyperkalemia
-Holding valsartan, potassium has normalized
#T2DM
-Well-controlled per patient, most recent hemoglobin A1c <7%
-Complicated by microvascular disease including neuropathy, possible CKD
-Home regimen includes Ozempic; no insulin or other oral agents
-Added on sliding scale insulin with Accu-Cheks while hospitalized
#CKD3a
-Unclear etiology, possibly related to his diabetic history; no recent labs, unclear baseline
-His BMP here has shown creatinine of 1.7 x 2, with creatinine clearance 65; may represent baseline
-No known systemic complications such as acidemia, bone mineral disease, anemia
-Will trend BMP while here
#CAD
-Home medications include aspirin and high intensity statin
-No known history of interventions such as CABG or PCI
-No signs of coronary ischemia on this hospitalization
#HLD
-ASCVD history with CAD, unclear if obstructive
-Remains on high intensity statin as above
#HTN
-Home medications include diltiazem and valsartan
-No known history of hypertensive systemic disease
-Holding valsartan hand due to elevated potassium, BP slightly high
-Start low-dose hydrochlorothiazide and monitor BP
#CML -- in remission
#Immunosuppressed on TKI
-Currently on maintenance therapy with Dasatinib as TKI
-Has been clinically stable and in remission, no signs of active disease
-CBC here shows normal blood cell parameters, basophil's WNL
-Holding TKI temporarily due to infection as above
#Class III obesity
-Remains on semaglutide as an outpatient
DVT prophylaxis: Heparin subcutaneous
Diet: Carbohydrate controlled
CODE STATUS: Full code
NOTE: I reached out to the patient's oncologist yesterday, Dr. Lawrence Kingsley, with [facility] in regards to holding the patient's TKI. I left my number with concierge receptionist and a message stating the reason for my call however I have not had a
return to call. I spoke with our oncology team, stated that they typically do not hold TKI during infections unless there are extenuating circumstances. Recommended trying to reach out to primary oncologist again today. If I am unable to get a
hold of their oncology team at [facility], I will resume TKI tomorrow
Anticipated Discharge: 24 - 48 hours
Subjective/Interval History
-
Date of Service: June 21, 2024
Seen and examined at the bedside. No acute events overnight. AFVSS this morning.
MRI of the left lower extremity yesterday does show possible signs of mild early osteomyelitis to the third digit of the left foot. Otherwise foot does seem improved following I&D yesterday.
He denies any acute complaints including chest pain, shortness of breath, fevers or chills, GI upset, urinary issues, bleeding or bruising, new paresthesias or weakness
Objective Data
-
Labs:
Laboratory Results
06/21/24 06/21/24
05:23 05:23
WBC 6.2
Hgb 12.2 L
Hct 33.9 L
Plt Count 264
Sodium 139
Potassium 5.1
Chloride 101
Carbon Dioxide 20 L
BUN 24 H
Creatinine 1.6 H
Glucose 118 H
Calcium 10.7 H 10.5 H
Vital Signs:
Vital Signs
Temp Pulse Resp BP Pulse Ox
98.2 F 69 16 150/78 98
06/21/24 07:45 06/21/24 09:29 06/21/24 07:45 06/21/24 09:29 06/21/24 07:45
I&O
06/20/24 06/21/24 06/22/24
06:59 06:59 06:59
Intake Total 960 / 960 720 / 720
Balance 960 / 960 720 / 720
Review of Systems
-
History Source: Patient
All other systems: Reviewed and negative
Physical Exam
-
General: Well Nourished, No Apparent Distress and Comfortable
HEENT: Normocephalic, Atraumatic, Moist Mucous Membranes and Anicteric
Respiratory: Clear to Auscultation and Non Labored Respirations; Negative Wheezes, Rales or Rhonchi
Cardiac: Regular Rhythm and S1/S2; Negative Murmur, Rub or Gallop
GI: Soft, Nontender, Nondistended and Normal Bowel Sounds
Musculoskeletal: No Clubbing, No Cyanosis and No Edema
Skin: Warm, Dry, Rash (Improved erythema to the left forefoot, no significant swelling) and Other (Third digit of left foot bandaged, covered with Betadine)
Neuro: AO x 3, Nonfocal/Grossly Intact and Central Nerve's Intact
Psych: Calm
Data Reviewed
-
Labs: Labs Reviewed by me and Discussed with Patient
[2024-06-21] MEDS: VITAMIN D3 (cholecalciferol) 50 MCG PO (14:34)
[2024-06-21] MEDS: ORETIC 25 MG PO (14:35)
[2024-06-21 15:40] LABS: Glucose - Point of Care 125 mg/dl (70-99)
[2024-06-21] MEDS: NON-FORMULARY ITEM 1 UNIT PO (15:54)
[2024-06-21 16:04] VITALS: BP 133/70
[2024-06-21 16:37] LABS: Glucose - Point of Care 132 mg/dl (70-99)
[2024-06-21 21:56] LABS: Glucose - Point of Care 115 mg/dl (70-99)
[2024-06-21] MEDS: SENOKOT 8.6 MG PO (22:06)
[2024-06-21 23:40] VITALS: BP 131/59
[2024-06-22] MEDS: HEPARIN 5000 UNITS SC ×3 (01:03→16:36)
[2024-06-22] MEDS: ZOSYN 50 IV ×4 (01:04→20:01)
[2024-06-22 07:06] LABS: % Basophils 0.6 % (0-2); % Eosinophils 4.8 % (0-6); % Immature Granulocytes 0.6 % (0-0.5); % Lymphocytes 16.9 % (20.5-51.1); % Monocytes 11.7 % (1.7-9.3); % Neutrophils 65.4 % (42.2-75.2); Absolute Eosinophils 0.3 10^3/uL (0-0.7); Absolute Lymphocytes 1.2 10^3/uL (1.2-3.4); Absolute Monocytes 0.8 10^3/uL (0.1-0.6); Absolute Neutrophils 4.5 10^3/uL (1.4-6.5); Hematocrit 33.1 % (39.0-52.0); Hemoglobin 11.7 g/dL (13.0-18.0); Mean Corp Hgb Conc. 35.3 g/dL (33.0-37.0); Mean Corpuscular Volume 82.1 fL (80.0-94.0); Mean Platelet Volume 8.8 fL (7.4-10.4); Nucleated Red Blood Cells % 0 % (-); Platelet Count 271 10^3/uL (130-400); Red Blood Cell Count 4.03 10^6/uL (4.70-6.10); Red Cell Dist. Width 13.2 % (11.5-14.5); White Blood Cell Count 6.9 10^3/uL (4.8-10.8)
[2024-06-22 07:18] LABS: Vancomycin Random 12.5 ug/ml
[2024-06-22 07:28] LABS: Blood Urea Nitrogen 29 mg/dl (9-20); Calcium 10.3 mg/dl (8.4-10.2); Carbon Dioxide 24 mmol/L (22-30); Chloride 101 mmol/L (98-107); Estimated Creatinine Clearance 58 ml/min; Glucose 123 mg/dl (70-99); Potassium 5.5 mmol/L (3.5-5.1); Sodium 140 mmol/L (135-145); eGFR 41.14
[2024-06-22 07:31] VITALS: BP 139/69
[2024-06-22 07:46] LABS: Glucose - Point of Care 147 mg/dl (70-99)
[2024-06-22] MEDS: ASPIR LOW (ENTERIC COATED) 81 MG PO (07:54)
[2024-06-22] MEDS: CARDIZEM CD 240 MG PO (07:55)
[2024-06-22] MEDS: NON-FORMULARY ITEM 1 UNIT PO (07:55)
[2024-06-22] MEDS: LIPITOR 40 MG PO (07:55)
[2024-06-22] MEDS: VITAMIN D3 (cholecalciferol) 50 MCG PO (07:56)
[2024-06-22] MEDS: ORETIC 25 MG PO (07:56)
--- NOTE | 2024-06-22 08:43 | PHA.VAN.FU ---
Vancomycin Assessment / Plan
- Assessment
Renal Function: SCR Increasing (1.5->1.6->1.9)
WBC's are: WNL
In the past 24 hrs, patient has been: Afebrile
Concomitant Antimicrobials: pip/tazo
- Assessment - Therapeutic Drug Monitoring
Random Level: 12.5 - ~ 21 hours after last dose of 1500 mg
- Dosing Plan
Continue: dose by random level
Dosing by Level: Re-dose today (vanc 100 mg x 1)
based on rising SCr, will redose today at 1000 mg x 1. Expect patient slower to reach steady state and that levels will slowly accumulate.
- Monitoring Plan
Random Level: 06/23 0600
- Follow Up
Pharmacy will continue to follow.
Vancomycin Follow UP
- -
Patient Age: 54
Patient Sex: Male
Vancomycin Day #: 5
Indication: Skin And Soft Tissue
Requesting Provider: Catracho Owen
Pertinent Antimicrobial Allergies:
NKDA
Height / Weight:
Height 5 ft 10 in
Actual Weight 124.5 kg
Pertinent Past Medical History: BMI ~39, DM, CML, CKD (baseline SCR ~1.6)
- Vital Signs / Lab Results
Temp Pulse Resp BP Pulse Ox
97.5 F 88 17 139/69 99
06/22/24 07:31 06/22/24 07:31 06/22/24 07:31 06/22/24 07:31 06/22/24 07:31
Lab Results - Hematology
06/20/24 06/21/24 06/22/24
06:00 05:23 06:29
WBC 6.2 6.2 6.9
Lab Results - Chemistry
06/19/24 06/20/24 06/21/24
12:56 06:00 05:23
BUN 29 H 24 H 24 H
Creatinine 1.5 H 1.5 H 1.6 H
Estimated Creat Clear 74 74 69
06/22/24
06:29
BUN 29 H
Creatinine 1.9 H
Estimated Creat Clear 58
Microbiology Results
06/18/24 19:05 MRSA Screen - Final
Nose No Methicillin Resistant Staphylococcus aureus isolated.
Therapeutic Drug Monitoring
Random Vancomycin 12.5 ug/ml 06/22/24 06:29
[2024-06-22 08:49] LABS: Erythrocyte Sed Rate 55 mm/hour (0-20)
[2024-06-22 11:17] LABS: Intact PTH 42.2 pg/ml (13.6-85.8)
--- NOTE | 2024-06-22 11:20 | W.PN.HOSP.TC ---
Today's Communication/Plan
-
Continue antibiotics
Follow toe clinically
Trend inflammatory markers
Follow-up BMP on Lokelma
Assessment / Plan
Assessment / Plan
#Purulent left foot cellulitis and diabetic patient
#Possible early osteomyelitis of the third digit on the left foot
-Presented with painful, red and swollen third digit on his left toe; on TKI for CML, immunosuppressed
-States he recently injured his toe while getting into the shower, had skin break
-Was started on vancomycin and Zosyn empirically on arrival to the hospital
-Initial x-rays x 2 to the left foot did not show any signs of osteomyelitis
-MRI showed possible early acute osteomyelitis of the third digit of left foot
-Does seem to have clinical improvement following incision and drainage
Plan
-Will continue with broad-spectrum antibiotics and observe toe clinically
-Trend daily inflammatory markers, CBC, and temperature curve
-May require a partial amputation of the third digit for osteomyelitis
#Hyperkalemia
-Serum potassium has been consistently in the range of 5.1-5.5 while here
-Was previously on valsartan which was discontinued, potassium remains high
-Received 1 dose of HCTZ yesterday without any change to
-Start Lokelma today, monitor BMP daily
#Mild hypercalcemia
-Calcium here has been in the range of 10.3-10.5 consistently, no signs or symptoms
-Differential diagnoses include primary hyperparathyroidism versus malignancy associated with CML
-Vitamin D levels were low, started on vitamin D supplementation
-Intact PTH and 1,25 hydroxy-vitamin D levels are pending
-Will trend daily BMP and follow-up lab
#T2DM
-Well-controlled per patient, most recent hemoglobin A1c <7%
-Complicated by microvascular disease including neuropathy, possible CKD
-Home regimen includes Ozempic; no insulin or other oral agents
-Added on sliding scale insulin with Accu-Cheks while hospitalized
#CKD3a
-Unclear etiology, possibly related to his diabetic history; no recent labs, unclear baseline
-His BMP here has shown creatinine of 1.7 x 2, with creatinine clearance 65; may represent baseline
-No known systemic complications such as acidemia, bone mineral disease, anemia
-Will trend BMP while here
#CAD
-Home medications include aspirin and high intensity statin
-No known history of interventions such as CABG or PCI
-No signs of coronary ischemia on this hospitalization
#HLD
-ASCVD history with CAD, unclear if obstructive
-Remains on high intensity statin as above
#HTN
-Home medications include diltiazem and valsartan
-No known history of hypertensive systemic disease
-Holding valsartan hand due to elevated potassium, BP slightly high
-Will add on hydralazine as needed for SBP >160 mmHg
#CML -- in remission
#Immunosuppressed on TKI
-Currently on maintenance therapy with Dasatinib as TKI
-Has been clinically stable and in remission, no signs of active disease
-CBC here shows normal blood cell parameters, basophil's WNL
#Class III obesity
-Remains on semaglutide as an outpatient
DVT prophylaxis: Heparin subcutaneous
Diet: Carbohydrate controlled
CODE STATUS: Full code
Anticipated Discharge: 24 - 48 hours
Subjective/Interval History
-
Date of Service: June 22, 2024
Seen and examined at the bedside. No acute events overnight. AFVSS this morning.
He states his toe seems about the same, looks better to me than when visualized 2 days ago. Minimal erythema to the forefoot now. Creatinine with slight elevation after HCTZ addition, will discontinue and monitor blood pressures. Consider as
needed hydralazine
He denies acute complaints including chest pain, shortness of breath, fevers or chills, nausea, vomiting, diarrhea, abnormal bleeding or bruising, urinary issues, new paresthesia, weakness
Objective Data
-
Labs:
Laboratory Results
06/22/24
06:29
WBC 6.9
Hgb 11.7 L
Hct 33.1 L
Plt Count 271
Sodium 140
Potassium 5.5 H
Chloride 101
Carbon Dioxide 24
BUN 29 H
Creatinine 1.9 H
Glucose 123 H
Calcium 10.3 H
Vital Signs:
Vital Signs
Temp Pulse Resp BP Pulse Ox
97.5 F 88 17 139/69 99
06/22/24 07:31 06/22/24 07:31 06/22/24 07:31 06/22/24 07:31 06/22/24 07:31
I&O
06/21/24 06/22/24 06/23/24
06:59 06:59 06:59
Intake Total 720 / 720 1260 / 1260
Balance 720 / 720 1260 / 1260
Review of Systems
-
History Source: Patient
All other systems: Reviewed and negative
Physical Exam
-
General: No Apparent Distress, Comfortable and Morbidly Obese
HEENT: Normocephalic, Atraumatic and Moist Mucous Membranes; Negative Thyromegaly or Nodules
Respiratory: Clear to Auscultation and Non Labored Respirations; Negative Wheezes, Rales or Rhonchi
Cardiac: Regular Rhythm and S1/S2; Negative Murmur, Rub or Gallop
GI: Soft, Nontender, Nondistended and Normal Bowel Sounds
Musculoskeletal: No Clubbing, No Cyanosis, No Edema and Normal Gait & Station
Skin: Warm, Dry and Other (Erythematous third digit of left toe, no purulence at this time, minimal forefoot erythema or swelling)
Neuro: AO x 3, Nonfocal/Grossly Intact and Central Nerve's Intact
Data Reviewed
-
Labs: Labs Reviewed by me and Discussed with Patient
[2024-06-22] MEDS: VANCOCIN 200 IV (11:51)
[2024-06-22 12:02] LABS: Glucose - Point of Care 111 mg/dl (70-99)
[2024-06-22 15:33] VITALS: BP 119/59
[2024-06-22 16:30] LABS: Glucose - Point of Care 113 mg/dl (70-99)
[2024-06-22] MEDS: LOKELMA 10 GRAM PO ×2 (16:36→20:00)
[2024-06-22 20:13] LABS: Glucose - Point of Care 101 mg/dl (70-99)
[2024-06-22 21:48] LABS: Glucose - Point of Care 98 mg/dl (70-99)
[2024-06-22 21:59] LABS: Vitamin D 1,25 Dihydroxy 6.5 pg/mL (19.9-79.3)
[2024-06-22 23:21] VITALS: BP 145/72
[2024-06-23] MEDS: HEPARIN 5000 UNITS SC ×4 (01:04→23:25)
[2024-06-23] MEDS: ZOSYN 50 IV ×4 (01:04→20:40)
[2024-06-23 01:13] LABS: Glucose - Point of Care 100 mg/dl (70-99)
[2024-06-23] MEDS: LOKELMA 10 GRAM PO ×3 (05:31→17:14)
[2024-06-23 07:30] VITALS: BP 159/77
[2024-06-23 08:10] LABS: Erythrocyte Sed Rate 50 mm/hour (0-20)
[2024-06-23 08:11] LABS: % Basophils 0.9 % (0-2); % Eosinophils 4.9 % (0-6); % Immature Granulocytes 0.6 % (0-0.5); % Lymphocytes 15.2 % (20.5-51.1); % Neutrophils 67.4 % (42.2-75.2); Absolute Basophils 0.1 10^3/uL (0-0.2); Absolute Eosinophils 0.3 10^3/uL (0-0.7); Absolute Lymphocytes 1.1 10^3/uL (1.2-3.4); Absolute Monocytes 0.8 10^3/uL (0.1-0.6); Absolute Neutrophils 4.7 10^3/uL (1.4-6.5); Hematocrit 35.5 % (39.0-52.0); Hemoglobin 12.4 g/dL (13.0-18.0); Mean Corp Hgb Conc. 34.9 g/dL (33.0-37.0); Mean Corpuscular Hgb 28.7 pg (27.0-31.0); Mean Corpuscular Volume 82.2 fL (80.0-94.0); Mean Platelet Volume 8.6 fL (7.4-10.4); Nucleated Red Blood Cells % 0 % (-); Platelet Count 305 10^3/uL (130-400); Red Blood Cell Count 4.32 10^6/uL (4.70-6.10); Red Cell Dist. Width 13.3 % (11.5-14.5); White Blood Cell Count 6.9 10^3/uL (4.8-10.8)
[2024-06-23 08:12] LABS: Glucose - Point of Care 163 mg/dl (70-99)
[2024-06-23 08:47] LABS: Vancomycin Random 12.3 ug/ml
[2024-06-23 09:00] LABS: Blood Urea Nitrogen 29 mg/dl (9-20); Calcium 10.7 mg/dl (8.4-10.2); Carbon Dioxide 24 mmol/L (22-30); Chloride 100 mmol/L (98-107); Estimated Creatinine Clearance 55 ml/min; Glucose 149 mg/dl (70-99); Sodium 142 mmol/L (135-145); eGFR 38.69
[2024-06-23 09:06] LABS: Potassium 4.8 mmol/L (3.5-5.1)
[2024-06-23] MEDS: CARDIZEM CD 240 MG PO (09:11)
[2024-06-23] MEDS: ASPIR LOW (ENTERIC COATED) 81 MG PO (09:11)
[2024-06-23] MEDS: VITAMIN D3 (cholecalciferol) 50 MCG PO (09:11)
[2024-06-23] MEDS: LIPITOR 40 MG PO (09:11)
[2024-06-23] MEDS: NON-FORMULARY ITEM 1 UNIT PO (09:12)
--- NOTE | 2024-06-23 09:46 | PHA.VAN.FU ---
Vancomycin Assessment / Plan
- Assessment
Renal Function: SCR Increasing (1.6->1.9->2.0)
WBC's are: WNL
In the past 24 hrs, patient has been: Afebrile
Concomitant Antimicrobials: pip/tazo
- Assessment - Therapeutic Drug Monitoring
Random Level: 12.3 ( ~20 h post 1000 mg dose given yesterday)
- Dosing Plan
Continue: dose by random level ( rising SCr and BMI ~40)
Dosing by Level: Re-dose today (1000 mg vanc x 1)
Dosing Comments: expect that level will slowly accumullate
- Monitoring Plan
Random Level: random in am 06/24
- Follow Up
Pharmacy will continue to follow.
Vancomycin Follow UP
- -
Patient Age: 54
Patient Sex: Male
Vancomycin Day #: 6
Indication: Skin And Soft Tissue
Requesting Provider: Catracho Owen
Pertinent Antimicrobial Allergies:
NKDA
Height / Weight:
Height 5 ft 10 in
Actual Weight 124.5 kg
Pertinent Past Medical History: BMI ~39, DM, CML, CKD (baseline SCR ~1.6)
- Vital Signs / Lab Results
Temp Pulse Resp BP Pulse Ox
97.7 F 80 18 159/77 98
06/23/24 07:30 06/23/24 07:30 06/23/24 07:30 06/23/24 07:30 06/23/24 07:30
Lab Results - Hematology
06/21/24 06/22/24 06/23/24
05:23 06:29 07:39
WBC 6.2 6.9 6.9
Lab Results - Chemistry
06/21/24 06/22/24 06/23/24
05:23 06:29 07:39
BUN 24 H 29 H 29 H
Creatinine 1.6 H 1.9 H 2.0 H
Estimated Creat Clear 69 58 55
Therapeutic Drug Monitoring
Random Vancomycin 12.3 ug/ml 06/23/24 07:39
[2024-06-23] MEDS: 0.45%NACL 1000 IV ×2 (11:14→20:39)
[2024-06-23] MEDS: VANCOCIN 200 IV (11:16)
--- NOTE | 2024-06-23 11:25 | W.PN.HOSP.TC ---
Today's Communication/Plan
-
Continue with broad-spectrum IV antibiotics
Follow toe clinically
Follow-up podiatry recommendations
Start maintenance IVF
Assessment / Plan
Assessment / Plan
#Purulent left foot cellulitis and diabetic patient
#Possible early osteomyelitis of the third digit on the left foot
-Presented with painful, red and swollen third digit on his left toe; on TKI for CML, immunosuppressed
-States he recently injured his toe while getting into the shower, had skin break
-Was started on vancomycin and Zosyn empirically on arrival to the hospital
-Initial x-rays x 2 to the left foot did not show any signs of osteomyelitis
-MRI showed possible early acute osteomyelitis of the third digit of left foot
-Does seem to have clinical improvement following incision and drainage
Plan
-Will continue with broad-spectrum antibiotics and observe toe clinically
-Trend daily inflammatory markers, CBC, and temperature curve
-May require a partial amputation of the third digit for osteomyelitis
#Elevated serum creatinine
#CKD3a
-Unclear etiology, possibly related to his diabetic history; no recent labs, unclear baseline
-His BMP here has shown creatinine of 1.7 x 2, with creatinine clearance 65; may represent baseline
-No known systemic complications such as acidemia, bone mineral disease, anemia
-Baseline creatinine in range of 1.5-1.9, has been closer to 1.9 and 2.0 recently
-Suspect he may be slightly hypovolemic in context of infection
-Started maintenance IVF, trend BMP day
#Hyperkalemia
-Serum potassium has been consistently in the range of 5.1-5.5 while here
-Was previously on valsartan which was discontinued, potassium remains high
-Resolved with Lokelma, 3-day course of Lokelma planned
#Mild hypercalcemia from vitamin D deficiency and bone demineralization
-Calcium here has been in the range of 10.3-10.7 consistently, no signs or symptoms
-PTH was borderline low, vitamin D levels low; vitamin D deficiency
-Started on vitamin D supplementation here
#T2DM
-Well-controlled per patient, most recent hemoglobin A1c <7%
-Complicated by microvascular disease including neuropathy, possible CKD
-Home regimen includes Ozempic; no insulin or other oral agents
-Added on sliding scale insulin with Accu-Cheks while hospitalized
#CAD
-Home medications include aspirin and high intensity statin
-No known history of interventions such as CABG or PCI
-No signs of coronary ischemia on this hospitalization
#HLD
-ASCVD history with CAD, unclear if obstructive
-Remains on high intensity statin as above
#HTN
-Home medications include diltiazem and valsartan
-No known history of hypertensive systemic disease
-Holding valsartan hand due to elevated potassium, BP slightly high
-Will add on hydralazine as needed for SBP >160 mmHg
#CML -- in remission
#Immunosuppressed on TKI
-Currently on maintenance therapy with Dasatinib as TKI
-Has been clinically stable and in remission, no signs of active disease
-CBC here shows normal blood cell parameters, basophil's WNL
#Class III obesity
-Remains on semaglutide as an outpatient
DVT prophylaxis: Heparin subcutaneous
Diet: Carbohydrate controlled
CODE STATUS: Full code
Anticipated Discharge: 24 - 48 hours
Subjective/Interval History
-
Date of Service: June 23, 2024
Seen and examined at the bedside. No acute events overnight. AFVSS this morning.
Creatinine stable in the range of 1.9-2.0. Suspect some degree of hypovolemia, started maintenance IV fluids. Labs for workup of hypercalcemia consistent with vitamin D deficiency
He denies any new acute complaints. His toe does seem improved with reduced erythema to the proximal portions, minimal erythema or swelling to the forefoot. No purulence
Objective Data
-
Labs:
Laboratory Results
06/23/24
07:39
WBC 6.9
Hgb 12.4 L
Hct 35.5 L
Plt Count 305
Sodium 142
Potassium 4.8
Chloride 100
Carbon Dioxide 24
BUN 29 H
Creatinine 2.0 H
Glucose 149 H
Calcium 10.7 H
Vital Signs:
Vital Signs
Temp Pulse Resp BP Pulse Ox
97.7 F 80 18 159/77 98
06/23/24 07:30 06/23/24 07:30 06/23/24 07:30 06/23/24 07:30 06/23/24 07:30
I&O
06/22/24 06/23/24 06/24/24
06:59 06:59 06:59
Intake Total 1260 / 1260 780 / 780
Balance 1260 / 1260 780 / 780
Review of Systems
-
History Source: Patient
All other systems: Reviewed and negative
Physical Exam
-
General: Well Nourished, No Apparent Distress and Comfortable
HEENT: Normocephalic, Atraumatic and Moist Mucous Membranes
Respiratory: Clear to Auscultation and Non Labored Respirations; Negative Wheezes, Rales or Rhonchi
Cardiac: Regular Rhythm and S1/S2; Negative Murmur, Rub or Gallop
GI: Soft, Nontender, Nondistended and Normal Bowel Sounds
Musculoskeletal: No Clubbing, No Cyanosis, No Edema and Normal Gait & Station
Skin: Warm, Dry and Other (Reduced erythema of third digit on left foot, no gross purulence); Negative Rash
Neuro: AO x 3, Nonfocal/Grossly Intact and Central Nerve's Intact
Data Reviewed
-
Labs: Labs Reviewed by me and Discussed with Patient
[2024-06-23] MEDS: SENOKOT 8.6 MG PO (11:40)
[2024-06-23 11:54] LABS: Glucose - Point of Care 124 mg/dl (70-99)
[2024-06-23 16:00] VITALS: BP 128/68
[2024-06-23 17:04] LABS: Glucose - Point of Care 100 mg/dl (70-99)
[2024-06-23 21:19] LABS: Glucose - Point of Care 108 mg/dl (70-99)
[2024-06-23 23:00] VITALS: BP 149/74
[2024-06-23 23:47] LABS: Glucose - Point of Care 106 mg/dl (70-99)
[2024-06-24] MEDS: ZOSYN 50 IV ×3 (02:24→14:03)
[2024-06-24 06:05] LABS: Vancomycin Random 12.1 ug/ml
[2024-06-24 06:12] LABS: % Basophils 0.6 % (0-2); % Eosinophils 4.8 % (0-6); % Immature Granulocytes 0.6 % (0-0.5); % Lymphocytes 15.4 % (20.5-51.1); % Monocytes 12.2 % (1.7-9.3); % Neutrophils 66.4 % (42.2-75.2); Absolute Eosinophils 0.3 10^3/uL (0-0.7); Absolute Lymphocytes 1.1 10^3/uL (1.2-3.4); Absolute Monocytes 0.8 10^3/uL (0.1-0.6); Absolute Neutrophils 4.6 10^3/uL (1.4-6.5); Hematocrit 32.3 % (39.0-52.0); Hemoglobin 11.5 g/dL (13.0-18.0); Mean Corp Hgb Conc. 35.6 g/dL (33.0-37.0); Mean Corpuscular Hgb 29.7 pg (27.0-31.0); Mean Corpuscular Volume 83.5 fL (80.0-94.0); Mean Platelet Volume 8.4 fL (7.4-10.4); Nucleated Red Blood Cells % 0 % (-); Platelet Count 233 10^3/uL (130-400); Red Blood Cell Count 3.87 10^6/uL (4.70-6.10); Red Cell Dist. Width 13.2 % (11.5-14.5); White Blood Cell Count 6.9 10^3/uL (4.8-10.8)
[2024-06-24 06:26] LABS: Blood Urea Nitrogen 28 mg/dl (9-20); Calcium 10.2 mg/dl (8.4-10.2); Carbon Dioxide 23 mmol/L (22-30); Chloride 100 mmol/L (98-107); Estimated Creatinine Clearance 61 ml/min; Glucose 106 mg/dl (70-99); Potassium 4.5 mmol/L (3.5-5.1); Sodium 140 mmol/L (135-145)
[2024-06-24 07:00] VITALS: BP 135/63
[2024-06-24 07:00] LABS: Erythrocyte Sed Rate 49 mm/hour (0-20)
[2024-06-24] MEDS: LOKELMA PO (07:13)
[2024-06-24 08:42] LABS: Glucose - Point of Care 109 mg/dl (70-99)
[2024-06-24] MEDS: LIPITOR 40 MG PO (08:47)
[2024-06-24] MEDS: VITAMIN D3 (cholecalciferol) 50 MCG PO (08:47)
[2024-06-24] MEDS: CARDIZEM CD 240 MG PO (08:47)
[2024-06-24] MEDS: SENOKOT 8.6 MG PO (08:47)
[2024-06-24] MEDS: ASPIR LOW (ENTERIC COATED) 81 MG PO (08:48)
[2024-06-24] MEDS: HEPARIN 5000 UNITS SC ×3 (08:48→23:57)
[2024-06-24] MEDS: NON-FORMULARY ITEM 1 UNIT PO (08:48)
--- NOTE | 2024-06-24 08:58 | PHA.VAN.FU ---
Vancomycin Assessment / Plan
- Assessment
Renal Function: Stable
WBC's are: WNL
In the past 24 hrs, patient has been: Afebrile
Concomitant Antimicrobials: piperacillin/tazobactam
- Assessment - Therapeutic Drug Monitoring
Random Level: 12.1 - drawn ~18H after previous dose of 1000mg
- Dosing Plan
Dosing by Level: Re-dose today (Vanc 1250mg)
Will increase dosing slightly as expect additional accumulation over 6 hours to reach Q24H interval
- Monitoring Plan
Random Level: 06/25 0600
- Follow Up
Pharmacy will continue to follow.
Vancomycin Follow UP
- -
Patient Age: 54
Patient Sex: Male
Vancomycin Day #: 7
Indication: Skin And Soft Tissue
Requesting Provider: Catracho Owen
Pertinent Antimicrobial Allergies:
NKDA
Height / Weight:
Height 5 ft 10 in
Actual Weight 124.5 kg
Pertinent Past Medical History: BMI ~39, DM, CML, CKD (baseline SCR ~1.6)
- Vital Signs / Lab Results
Temp Pulse Resp BP Pulse Ox
97.7 F 71 16 135/63 97
06/24/24 07:00 06/24/24 07:00 06/24/24 07:00 06/24/24 07:00 06/24/24 07:00
Lab Results - Hematology
06/22/24 06/23/24 06/24/24
06:29 07:39 05:28
WBC 6.9 6.9 6.9
Lab Results - Chemistry
06/22/24 06/23/24 06/24/24
06:29 07:39 05:28
BUN 29 H 29 H 28 H
Creatinine 1.9 H 2.0 H 1.8 H
Estimated Creat Clear 58 55 61
Microbiology Results
06/21/24 20:59 Anaerobic Culture - Preliminary
Wound-Deep Culture pending. Anaerobic cultures are examined after 3
days incubation. Additional information to follow.
Therapeutic Drug Monitoring
Random Vancomycin 12.1 ug/ml 06/24/24 05:28
[2024-06-24] MEDS: VANCOCIN 275 MG IV (09:37)
[2024-06-24 12:02] LABS: Glucose - Point of Care 106 mg/dl (70-99)
--- NOTE | 2024-06-24 12:20 | W.PN.SURGUPD ---
Surgical Update
Surgical Update
Patient seen and evaluated at bedside. Left third toe significantly improved after bedside incision and drainage. Discussed treatment options including left third toe partial amputation versus trialing antibiotics. Given his significant
improvement in local signs of infection, will proceed with local wound care, close monitoring, and antibiotics. Discussed the risk of worsening infection given this treatment group.
-Offloading of left forefoot in surgical shoe
-Continue oral antibiotics
-Patient will follow up as an outpatient within 1 week following discharge
-Patient given strict instructions to monitor area of worsening signs of infection.
--- NOTE | 2024-06-24 12:30 | W.PN.HOSP.TC ---
Today's Communication/Plan
-
ID eval
IV broad spectrum abx for now
no plan for surgery -noted
DC IVF. Trend cr
Assessment / Plan
Assessment / Plan
#Purulent left foot cellulitis and diabetic patient
#Suspicious for osteomyelitis of the third digit on the left foot vs. marrow edema
-Presented with painful, red and swollen third digit on his left toe; on TKI for CML, immunosuppressed
-Initial x-rays x 2 to the left foot did not show any signs of osteomyelitis
-MRI showed possible early acute osteomyelitis of the third digit of left foot
-Will continue with broad-spectrum antibiotics and observe toe clinically.. MRSA negative.
-s/p I&D. Only seems anaerobes culture was sent.
-Podiatry correspondence noted-plan to observe clinically/conservatively. Will ask ID input for abx.
#Elevated serum creatinine
#CKD3a
-Unclear etiology, possibly related to his diabetic history; no recent labs, unclear baseline
-His BMP here has shown creatinine of 1.7 x 2, with creatinine clearance 65; may represent baseline
-No known systemic complications such as acidemia, bone mineral disease, anemia
-Baseline creatinine in range of 1.5-1.9, has been closer to 1.9 and 2.0 recently
-Suspect he may be slightly hypovolemic in context of infection
-DC further IVF and observe.
#Hyperkalemia
-Serum potassium has been consistently in the range of 5.1-5.5 while here
-Was previously on valsartan which was discontinued, potassium remains high
-Resolved with Lokelma, 3-day course of Lokelma planned
#Mild hypercalcemia from vitamin D deficiency and bone demineralization
-Calcium here has been in the range of 10.3-10.7 consistently, no signs or symptoms
-PTH was borderline low, vitamin D levels low; vitamin D deficiency
-Started on vitamin D supplementation here
#T2DM
-Well-controlled per patient, most recent hemoglobin A1c <7%
-Complicated by microvascular disease including neuropathy, possible CKD
-Home regimen includes Ozempic; no insulin or other oral agents
-Added on sliding scale insulin with Accu-Cheks while hospitalized
#CAD
-Home medications include aspirin and high intensity statin
-No known history of interventions such as CABG or PCI
-No signs of coronary ischemia on this hospitalization
#HLD
-ASCVD history with CAD, unclear if obstructive
-Remains on high intensity statin as above
#HTN Primary
-Home medications include diltiazem and valsartan
-No known history of hypertensive systemic disease
-Holding valsartan hand due to elevated potassium.
-Will add on hydralazine as needed for SBP >160 mmHg
#CML -- in remission
#Immunosuppressed on TKI
-Currently on maintenance therapy with Dasatinib as TKI
-Has been clinically stable and in remission, no signs of active disease
-CBC here shows normal blood cell parameters, basophil's WNL
#Class III obesity
-Remains on semaglutide as an outpatient
DVT prophylaxis: Heparin subcutaneous
Diet: Carbohydrate controlled
CODE STATUS: Full code
Anticipated Discharge: > 48 hours
Subjective/Interval History
-
Date of Service: June 24, 2024
states of significant improvement in the left leg and toe erythema and swelling.
Objective Data
-
Labs:
Laboratory Results
06/24/24
05:28
WBC 6.9
Hgb 11.5 L
Hct 32.3 L
Plt Count 233 D
Sodium 140
Potassium 4.5
Chloride 100
Carbon Dioxide 23
BUN 28 H
Creatinine 1.8 H
Glucose 106 H
Calcium 10.2
Vital Signs:
Vital Signs
Temp Pulse Resp BP Pulse Ox
97.7 F 71 16 135/63 97
06/24/24 07:00 06/24/24 07:00 06/24/24 07:00 06/24/24 07:00 06/24/24 07:00
I&O
06/23/24 06/24/24 06/25/24
06:59 06:59 06:59
Intake Total 780 / 780 2860 / 2860
Balance 780 / 780 2860 / 2860
Physical Exam
-
General: Well Nourished, No Apparent Distress and Comfortable
HEENT: Normocephalic, Atraumatic and Moist Mucous Membranes
Respiratory: Clear to Auscultation and Non Labored Respirations; Negative Wheezes, Rales or Rhonchi
Cardiac: Regular Rhythm and S1/S2; Negative Murmur, Rub or Gallop
GI: Soft, Nontender, Nondistended and Normal Bowel Sounds
Musculoskeletal: No Clubbing, No Cyanosis, No Edema and Normal Gait & Station
Skin: Warm, Dry and Other (no gross purulence, erythema of third digit on left foot, ); Negative Rash
Neuro: Awake, Alert, Oriented, AO x 3, No Motor Deficits, Nonfocal/Grossly Intact and Central Nerve's Intact
Psych: Calm
Data Reviewed
-
Total Time Spent with Patient (in minutes): 56
[2024-06-24] MEDS: 0.45%NACL IV (13:17)
--- NOTE | 2024-06-24 13:42 | CON.ID ---
Consultation
-
Date/Time Consultation Requested: 06/24/24 9:05
Date/Time Consultation Performed: 06/24/24 13:46
Requesting Provider: Dr Concepcion
Performing Provider: Dr Broussard
Reason for Consultation: diabetic foot infection
Chief Complaint / Past History
Chief Complaint
left 3rd toe cellulitis and lymphangitis
History of Present Illness
Mr Swanson is a 54 year old male with history of CML in remission on dasatinib, DM2, CKD3 (baseline Cr 1.6) who presented here on 06/18 (7 days ago) for left third toe redness, swelling for 1 day. Area is not painful, patient with known neuropathy.
Patient stubbed his toe against the lip of his shower but he didnt notice any abrasions or cute to the toe. The redness spread to his leg and he presented here. No fevers sweats or chills. He was seen in routine follow up with his oncologist who
gave him a dose of zosyn and referred him to the ER.
Since arrival here he has been afebrile, bp stable, wbc initially 12.4 resolved hd2 to 7.4, hgb 11.9, plt 267, L shift not present on arrival, esr on arrival 43, cr initially 1.7 now 1.8 with peak at 2.0 yesterday, a1c 6.3, crp initially 34 now 8.4,
t bili 1.1, asr 32, alt 29, alk phos 77, MRI without contrast: mild signal abnormality distal phalanx of left 3rd toe, moderate cellulitis, acute on chronic muscle denervation consistent with DM, 06/20 xray: no evidence of osteo. Patient has been on
vancomycin and zosyn for the duration of his hospitalization, ID is consulted for assistance with management.
Past History
Additional Past Medical History:
CML (Chronic Myeloid Leukemia)
Coronary Atherosclerosis
Essential Hypertension
Hyperlipidemia
Diabetes Mellitus, Type II
CKD Stage II
Class III Obesity
Past Surgical History: None
Allergy History:
No Known Allergies Allergy (Verified 06/18/24 12:48)
Medications Reviewed: Yes
Social History
Tobacco: Former Smoker (10 year pack history, quit in his 30s)
Alcohol: Occasional
Drug: None
Family History
Family History: Not Pertinent
Review of Systems
Review of Systems
General: Negative Fever or Chills
All systems: All other systems were reviewed and were negative
Vital Signs
Temp Pulse Resp BP Pulse Ox
97.7 F 71 16 135/63 97
06/24/24 07:00 06/24/24 07:00 06/24/24 07:00 06/24/24 07:00 06/24/24 07:00
Physical Exam
Physical Exam
Constitutional: No Acute Distress
Cardiovascular: Regular Rate and S1/S2; Negative Murmur or Rub
Pulmonary: Clear and Symmetric; Negative Wheezes, Rales or Rhonchi
Gastrointestinal: Soft, Non Tender, Non Distended and Normal Bowel Sounds
Extremities: Other (bilateral feet are warm with pedal pulses)
Skin: Warm and Dry; Negative Rash or Jaundice
Wound: Other (linear incision healing of the left 3rd toe, mild erythema of the toe, no erythema or swelling of the forefoot or leg)
Lab / Diagnostic Study Results
06/24/24 05:28
06/24/24 05:28
Abs Immat Gran (auto) 0.0 10^3/uL (0-0.05) 06/24/24 05:28
Absolute Neuts (auto) 4.6 10^3/uL (1.4-6.5) 06/24/24 05:28
Absolute Lymphs (auto) 1.1 10^3/uL (1.2-3.4) L 06/24/24 05:28
Absolute Monos (auto) 0.8 10^3/uL (0.1-0.6) H 06/24/24 05:28
Absolute Basos (auto) 0.0 10^3/uL (0-0.2) 06/24/24 05:28
Immature Gran % 0.6 % (0-0.5) H 06/24/24 05:28
Neutrophils % 66.4 % (42.2-75.2) 06/24/24 05:28
Lymphocytes % 15.4 % (20.5-51.1) L 06/24/24 05:28
Monocytes % 12.2 % (1.7-9.3) H 06/24/24 05:28
Eosinophils % 4.8 % (0-6) 06/24/24 05:28
Basophils % 0.6 % (0-2) 06/24/24 05:28
ESR 49 mm/hour (0-20) H 06/24/24 05:28
C-Reactive Protein 8.40 mg/L (0.0-10.00) 06/24/24 05:28
Microbiology Results
Micro:
06/21/24 20:59 Anaerobic Culture - Preliminary
Wound-Deep Culture pending. Anaerobic cultures are examined after 3
days incubation. Additional information to follow.
06/18/24 19:05 MRSA Screen - Final
Nose No Methicillin Resistant Staphylococcus aureus isolated.
Assessment / Plan
Diabetic Foot Infection
Toe abscess s/p I&D
DM2 - controlled
Class II/borderline III obesity
CML in remission on dastinib
- recommend against daily ESR/CRP as unlikely to exchange administrator
- blood cultures were not done and would have been low yield - not needed in my opinion
- 06/21 superficial abscess of distal toe lanced with about 5 ccs of seropurulent material obtained
- aerobic culture was not sent
- anaerobic culture was sent in progress
- nose not colonized with MRSA
- note plans for attempt of medical therapy which is a reasonable consideration
- today is day 7 of vancomycin and zosyn
- we discussed risks and benefits of a course of empiric IV vs orals, I recommended a trial of empiric oral therapy with the understanding that if there is progression or relapse a course of IV might be recommended in the future
- plan 5 more weeks course of doxycycline and augmentin
- has follow up with podiatry, follow up with ID in 5 weeks
Care Review
Plan reviewed with: Physician (Dr Concepcion)
[2024-06-24 15:00] VITALS: BP 151/78
--- NOTE | 2024-06-24 16:47 | CM ---
Spoke with pt in room .
Awaiting on culture to determine ID plan.
Podiatry involved.
Pt said surgery may be needed.
IVF dc.
Maintained on IV antibiotics.
PLAN Home with possible VN needs
[2024-06-24 17:14] LABS: Glucose - Point of Care 100 mg/dl (70-99)
[2024-06-24] MEDS: AUGMENTIN 875 MG/125 MG 1 TABLET PO (20:32)
[2024-06-24] MEDS: VIBRAMYCIN 100 MG PO (20:32)
[2024-06-24 22:09] LABS: Glucose - Point of Care 110 mg/dl (70-99)
[2024-06-24 23:37] VITALS: BP 144/66
[2024-06-25 05:54] LABS: % Basophils 0.7 % (0-2); % Immature Granulocytes 0.3 % (0-0.5); % Lymphocytes 15.9 % (20.5-51.1); % Neutrophils 63.1 % (42.2-75.2); Absolute Basophils 0.1 10^3/uL (0-0.2); Absolute Eosinophils 0.4 10^3/uL (0-0.7); Absolute Lymphocytes 1.1 10^3/uL (1.2-3.4); Absolute Monocytes 0.9 10^3/uL (0.1-0.6); Absolute Neutrophils 4.2 10^3/uL (1.4-6.5); Hematocrit 31.3 % (39.0-52.0); Hemoglobin 11.1 g/dL (13.0-18.0); Mean Corp Hgb Conc. 35.5 g/dL (33.0-37.0); Mean Corpuscular Volume 81.7 fL (80.0-94.0); Mean Platelet Volume 8.5 fL (7.4-10.4); Nucleated Red Blood Cells % 0 % (-); Platelet Count 246 10^3/uL (130-400); Red Blood Cell Count 3.83 10^6/uL (4.70-6.10); Red Cell Dist. Width 13.3 % (11.5-14.5); White Blood Cell Count 6.7 10^3/uL (4.8-10.8)
[2024-06-25 06:15] LABS: Blood Urea Nitrogen 27 mg/dl (9-20); Calcium 10.4 mg/dl (8.4-10.2); Carbon Dioxide 23 mmol/L (22-30); Chloride 101 mmol/L (98-107); Estimated Creatinine Clearance 65 ml/min; Glucose 117 mg/dl (70-99); Potassium 4.5 mmol/L (3.5-5.1); Sodium 141 mmol/L (135-145); eGFR 47.02
[2024-06-25 07:07] LABS: Glucose - Point of Care 117 mg/dl (70-99)
[2024-06-25 07:28] VITALS: BP 177/77
[2024-06-25] MEDS: HEPARIN 5000 UNITS SC (08:09)
[2024-06-25] MEDS: CARDIZEM CD 240 MG PO (08:10)
[2024-06-25] MEDS: VITAMIN D3 (cholecalciferol) 50 MCG PO (08:10)
[2024-06-25] MEDS: SENOKOT 8.6 MG PO (08:10)
[2024-06-25] MEDS: LIPITOR 40 MG PO (08:10)
[2024-06-25] MEDS: NON-FORMULARY ITEM 1 UNIT PO (08:10)
[2024-06-25] MEDS: AUGMENTIN 875 MG/125 MG 1 TABLET PO (08:10)
[2024-06-25] MEDS: VIBRAMYCIN 100 MG PO (08:10)
[2024-06-25] MEDS: ASPIR LOW (ENTERIC COATED) 81 MG PO (08:10)
[2024-06-25 09:02] VITALS: BP 143/88
--- NOTE | 2024-06-25 10:44 | W.PN.HOSP.TC ---
Today's Communication/Plan
-
home
po abx
op repeat bmp
Assessment / Plan
Assessment / Plan
#Purulent left foot cellulitis in diabetic patient
#Suspicious for osteomyelitis of the third digit on the left foot vs. marrow edema
-Presented with painful, red and swollen third digit on his left toe; on TKI for CML, immunosuppressed
-Initial x-rays x 2 to the left foot did not show any signs of osteomyelitis
-MRI showed possible early acute osteomyelitis of the third digit of left foot
-Vanco/zosyn stopped and started on doxycycline and augmentin for 6 weeks per ID.
-s/p I&D. Only seems anaerobes culture was sent.
-Podiatry correspondence noted-plan to observe clinically/conservatively. Op podiatry f/u schedule later this week.
-OP f/u with ID.
-Pt understands if with any worsening of wound may need partial vs. complete toe amputation.
#Elevated serum creatinine
#CKD3a
-Unclear etiology, possibly related to his diabetic history; no recent labs, unclear baseline
-His BMP here has shown creatinine of 1.7 x 2, with creatinine clearance 65; may represent baseline
-No known systemic complications such as acidemia, bone mineral disease, anemia
-Baseline creatinine in range of 1.5-1.9, has been closer to 1.9 and 2.0 recently
-Suspect he may be slightly hypovolemic in context of infection
-DC further IVF and observe.
#Hyperkalemia
-Status post Lokelma x 3 days. Discussed with patient would like to continue valsartan. Reasonable as patient potassium has been normal for the past 72 hours. Patient to repeat blood work next week. If potassium is abnormal then probably needs
to discontinue valsartan. Patient knows to follow-up with primary doctor.
#Mild hypercalcemia from vitamin D deficiency and bone demineralization
-Calcium here has been in the range of 10.3-10.7 consistently, no signs or symptoms
-PTH was borderline low, vitamin D levels low; vitamin D deficiency
-Started on vitamin D supplementation here
#T2DM
-Well-controlled per patient, most recent hemoglobin A1c <7%
-Complicated by microvascular disease including neuropathy, possible CKD
-Home regimen includes Ozempic; no insulin or other oral agents
-Added on sliding scale insulin with Accu-Cheks while hospitalized
#CAD
-Home medications include aspirin and high intensity statin
#HLD
-Remains on high intensity statin as above
#HTN Primary
-Home medications include diltiazem and valsartan
-No known history of hypertensive systemic disease
#CML -- in remission
#Immunosuppressed on TKI
-Currently on maintenance therapy with Dasatinib as TKI
-Has been clinically stable and in remission, no signs of active disease
-CBC here shows normal blood cell parameters, basophil's WNL
#Class III obesity
-Remains on semaglutide as an outpatient
DVT prophylaxis: Heparin subcutaneous
Diet: Carbohydrate controlled
CODE STATUS: Full code
Dispo home
More than 30 minutes spent in discharge including
Final examination of the patient
Summarizing hospital stay
Instructions for continuing care to all relevant caregivers
Preparation of discharge records, prescriptions, and referral forms
Total time spent (in minutes): 50
Anticipated Discharge: Today
Subjective/Interval History
-
Date of Service: June 25, 2024
states the erythema has improved
Objective Data
-
Labs:
Laboratory Results
06/25/24
05:28
WBC 6.7
Hgb 11.1 L
Hct 31.3 L
Plt Count 246
Sodium 141
Potassium 4.5
Chloride 101
Carbon Dioxide 23
BUN 27 H
Creatinine 1.7 H
Glucose 117 H
Calcium 10.4 H
Vital Signs:
Vital Signs
Temp Pulse Resp BP Pulse Ox
98.3 F 81 18 143/88 95
06/25/24 07:28 06/25/24 09:02 06/25/24 07:28 06/25/24 09:02 06/25/24 07:28
I&O
06/24/24 06/25/24 06/26/24
06:59 06:59 06:59
Intake Total 2860 / 2860 660 / 660
Balance 2860 / 2860 660 / 660
Physical Exam
-
General: Well Nourished, No Apparent Distress and Comfortable
HEENT: Normocephalic, Atraumatic and Moist Mucous Membranes
Respiratory: Clear to Auscultation and Non Labored Respirations; Negative Wheezes, Rales or Rhonchi
Cardiac: Regular Rhythm and S1/S2; Negative Murmur, Rub or Gallop
GI: Soft, Nontender, Nondistended and Normal Bowel Sounds
Musculoskeletal: No Clubbing, No Cyanosis, No Edema and Normal Gait & Station
Skin: Warm, Dry and Other (no gross purulence, erythema of third digit on left foot improved since yesterday, ); Negative Rash
Neuro: Awake, Alert, Oriented, AO x 3, No Motor Deficits, Nonfocal/Grossly Intact and Central Nerve's Intact
Psych: Calm
--- NOTE | 2024-06-25 11:03 | CM ---
MD entered order for dc .
Spoke with pt he said he was dc to home with po antibiotics.
Pt felt he was ready for dc.
VN offered he declined need.
PLAN Home no needs
[2024-06-25 11:05] LABS: Glucose - Point of Care 101 mg/dl (70-99)
--- NOTE | 2024-06-25 12:28 | W.PN.SURGUPD ---
Surgical Update
Surgical Update
Patient seen and evaluated at bedside
-Toe continues to improve clinically. Will defer surgical intervention and attempt antibiotic course.
-Antibiotic plan per ID
-Patient will follow up for clinical evaluation as outpatient on 06/28.
-Patient to continue WBAT in surgical shoe.
--- NOTE | 2024-06-25 12:52 | W.DCSUMMARY ---
Discharge Summary
Discharge Data
Date of Admission: 06/18/24
Date of Discharge: 06/25/24
-
Pending Results: No
Hospital Course
54 male past medical history of diabetes, CAD, hyperlipidemia, CKD, primary hypertension, CML in remission, obesity was presented from home with left foot cellulitis. Patient was eval by podiatry and infectious disease. Patient underwent bedside
drainage by podiatry. Patient with significant improvement in erythema with IV broad-spectrum antibiotics of vancomycin and Zosyn. MRI of the left foot with suspicion for acute osteomyelitis. Infectious disease was consulted. Patient is a he
would like to do conservative management and would like to avoid surgery. Podiatry agreed. Patient agreed discharge home on p.o. doxycycline and Augmentin for 6 weeks of antibiotics per infectious disease recommendation. Patient to follow-up
outpatient with podiatry later this week. Patient was also found to have a significantly low vitamin D level was started on p.o. supplementation. Patient also had mild hyperkalemia which resolved with Lokelma. Patient understood his mildly
elevated potassium could be due to valsartan however he would like to continue this medication. Patient stated he will follow-up with primary doctor with repeat blood work. He understand that if abnormal potassium then valsartan will need to be
discontinued. Patient will also follow-up with infectious disease as outpatient in 4 to 6 weeks.
Discharge Plan
-
Patient Disposition: Home with Home Care
Discharge Diagnosis/Procedures: Diabetic foot infection
Toe abscess status post incision and drainage
Hypercalcemia
Acute kidney injury on chronic kidney disease
Hyperkalemia
Mild hypercalcemia
Condition: Fair
Diet: Diabetic, Carb Controlled
Activity: With assistance and As tolerated
Blood Work: BMP in 3-5 days with primary doctor.
Activity Restrictions/Additional Instructions:
Doxycycline Precautions
�� Take with at least 6 oz H2O
�� Take with food but no calcium containing products like milk or cheese
�� Ideally you would not take any multivitamins, calcium, magnesium or zinc containing products.
�� If you must take one of these products make sure that the pills are by at least 3 hours.
�� Sit up for at least 30 minutes after each dose to prevent heartburn.
�� Your skin will be more sensitive to the sun while you are on doxycycline - it will be very easy for you to get a sunburn.
Referrals:
Boy Kowalski, [Family Provider] - in less than 1 week
Tyler Worthy MD [Active] - in less than 1 week
Lucia Broussard MD [Active] - in four to six weeks
Prescriptions:
New
amoxicillin-pot clavulanate 875-125 mg Tablet
1 tab PO Q12 41 Days Qty: 82 0RF
doxycycline hyclate 100 mg Capsule
100 mg PO Q12 41 Days Qty: 82 0RF
cholecalciferol (vitamin D3) 50 mcg (2,000 unit) Tablet
50 mcg PO DAILY 30 Days Qty: 30 0RF
Continued
atorvastatin 40 MG tablet
40 mg PO DAILY
aspirin 81 MG tablet,delayed release (DR/EC)
81 mg PO DAILY
diltiazem HCl [Cardizem LA] 240 MG tablet extended release 24 hr
240 mg PO DAILY
valsartan 160 mg tablet
160 mg PO DAILY
dasatinib [Sprycel] 50 mg tablet
50 mg PO DAILY
Ozempic 1 mg/dose (4 mg/3 mL) pen injector
1 mg SC TU
Discharge Orders:
Discharge Patient (As Directed); Ordered 06/25/24
Ordered By: Rob Concepcion
Discharge Date and Time
Discharge Date/Time: 06/25/24 12:00
Print Language: TAJIK
== END 2024-06-25 12:00 | disposition home or self-care (01) | DRG 638 ==
LOC: 3 WEST ACU 17:59
PROVIDERS: Internal Medicine; Physician Assistant; Physician Assistant Medical; ADMITTING PHYSICIAN Internal Medicine; ATTENDING PHYSICIAN Hospitalist; CONSULT PHYSICIAN Student in an Organized Health Care Education/Training Program; EMERGENCY PHYSICIAN Emergency Medicine; FAMILY PHYSICIAN Family Medicine; OTHER PHYSICIAN Student in an Organized Health Care Education/Training Program
PROC: 0H9NXZZ Drainage of Left Foot Skin, External Approach (ICD-10-PCS; 2024-06-20)
DX: E11.69 Type 2 diabetes mellitus with other specified complication (principal); C92.11 Chronic myeloid leukemia, BCR/ABL-positive, in remission; L02.612 Cutaneous abscess of left foot; M86.172 Other acute osteomyelitis, left ankle and foot; D84.821 Immunodeficiency due to drugs; E11.628 Type 2 diabetes mellitus with other skin complications; L03.032 Cellulitis of left toe; E55.9 Vitamin D deficiency, unspecified; E78.5 Hyperlipidemia, unspecified; I25.10 Atherosclerotic heart disease of native coronary artery without angina pectoris; I12.9 Hypertensive chronic kidney disease with stage 1 through stage 4 chronic kidney disease, or unspecified chronic kidney disease; N18.31 Chronic kidney disease, stage 3a; E87.5 Hyperkalemia; E11.40 Type 2 diabetes mellitus with diabetic neuropathy, unspecified; E11.22 Type 2 diabetes mellitus with diabetic chronic kidney disease; E66.01 Morbid (severe) obesity due to excess calories; N17.9 Acute kidney failure, unspecified; T45.1X5A Adverse effect of antineoplastic and immunosuppressive drugs, initial encounter; Z68.39 Body mass index [BMI] 39.0-39.9, adult; Z79.85 Long-term (current) use of injectable non-insulin antidiabetic drugs; Z79.82 Long term (current) use of aspirin; Z79.899 Other long term (current) drug therapy; Z87.891 Personal history of nicotine dependence
CPT/HCPCS: 73620; 73660; 73721; 80048; 80053; 80202; 82306; 82652; 82962; 83036; 83970; 85025; 85027; 85652; 86140; 87070; 87075; 93005; 96365; 96366; 99285

== ENCOUNTER → 2024-08-07 08:34 | Outpatient (REF) | payer OTHER, SELFPAY | LOC: RAD 08:34 | PROVIDERS: ATTENDING PHYSICIAN Student in an Organized Health Care Education/Training Program; FAMILY PHYSICIAN Family Medicine; REFERRING PHYSICIAN Student in an Organized Health Care Education/Training Program | DX: E11.628 Type 2 diabetes mellitus with other skin complications (principal) | CPT/HCPCS: 73630 ==